=== PATIENT | male | born 1955 | race Caucasian/White ===

== ENCOUNTER → 2017-02-06 | Outpatient (CLI) | payer OTHER ==
[~2017-02-06] MED LIST: ALTOPREV40 MG PO; ASPIRIN81 M2 PO; ATORVASTATIN CA10 MG PO; BACLOFEN10 MG PO; BLOOD PRESSURE PO; BUSPIRONE HCL10 MG PO; CELEXA20 MG PO; CLEOCIN HCL300 M1 PO; CLOPIDOGREL75 MG PO; COREG3.125 MG PO; COREG6.25 MG PO; CYMBALTA20 MG PO; DELTASONE20 MG PO; DOCUSATE SODIU100 MG PO; ENTRESTO 24 MG1 EACH PO; FLOMAX0.4 M1 PO; GABAPENTIN300 MG PO; GLUCOPHAGE500 MG PO; HYDROCHLOROTHIA25 MG PO; KEFLEX PO; KEFLEX500 MG PO; LINZESS145 MCG PO; NITROGLYCERIN0.4 MG SL; PANTOPRAZOLE SO40 MG PO; PERCOCET10 PO; PERCOCET5/325 PO; PRAVASTATIN SOD40 MG PO; ST. JOSEPH ASP325 MG PO; ZESTRIL5 MG PO; [UNRECOGNIZED DRUG - OTHER] PO
--- NOTE | ~2017-02-06 | CR63 ---
[facility] A Service of [facility] RADIOLOGY TEXT RESULTS PATIENT: KATIA SIFUENTES LOCATION: [facility] : 59 UNIT #: [id number] AGE: [address]: JULIETA MCKEE APRN SEX: M ORDER DR: [id number] [address] [address] [id number] O MR#: [id number] Acc #: [id number] NAME: KATIA SIFUENTES : 1955 SEX: M STUDY DATE/TIME: 02/06/2017 11:33 UNIT: [facility] ROOM: STUDY DESCRIPTION: CR Chest 2 View Attending Physician: Julieta Mckee M.D. Ordering Physician: Julieta Mckee M.D. Primary Care Physician: Primary Care Physician No MEDICAL IMAGING REPORT This report is preliminary unless electronic signature is present. EXAM Chest 2 views, 02/06/2017 11:33 hours HISTORY 61-year-old man with 2-week history of congestion and cough. COMPARISON None FINDINGS Upright PA and lateral views of the chest performed. Patient's arms are not raised overhead on the lateral view which obscures the anterior chest. The heart size is within normal limits. Mediastinal and hilar contours are normal. There are benign calcified nodes present. The lungs are clear and there are no effusions. IMPRESSION Benign calcified granulomatous changes. No acute cardiopulmonary findings. Dictated by... Iram Sweeney M.D. THIS IS AN ELECTRONICALLY VERIFIED REPORT Iram Sweeney M.D. at 02/06/2017 1:43 PM Jeanne TD: 02/06/2017 13:24 JOB #: [id number] MEDICAL IMAGING REPORT Page 1 of 1
--- NOTE | ~2017-02-06 | CR123 ---
[facility] A Service of [facility] RADIOLOGY TEXT RESULTS PATIENT: KATIA SIFUENTES LOCATION: [facility] : 59 UNIT #: [id number] AGE: [address]: JULIETA MCKEE APRN SEX: M ORDER DR: [id number] [address] [address] [id number] O MR#: [id number] Acc #: [id number] NAME: KATIA SIFUENTES : 1955 SEX: M STUDY DATE/TIME: 02/06/2017 UNIT: [facility] ROOM: STUDY DESCRIPTION: CR Foot 2 Views Lt Attending Physician: Julieta Mckee M.D. Ordering Physician: Julieta Mckee M.D. Primary Care Physician: No Primary Care Physician MEDICAL IMAGING REPORT This report is preliminary unless electronic signature is present. EXAM Left foot, 3 views, 02/06/2017, 1133 hours. HISTORY 61-year-old male with history of diabetes and wound on toe for 3 weeks after skinning toes on table. Evaluate for foreign body, left leg paralysis, right leg amputation. COMPARISON STUDIES Left foot film, 04/17/2010. FINDINGS AP, lateral and oblique views demonstrate a mottled appearance throughout all of the bones, most likely representing disuse osteopenia or osteoporosis. Previous fractures of the distal phalanx of the great toe and proximal phalanx of the 2nd toe, which were acute on 04/17/2010, have healed. No definite acute fracture is seen. However, there is abnormal appearance on the lateral view at the distal interphalangeal joint of the 2nd toe, which raises question of spurring versus fracture. This does, however, appear normal on the AP view. Suggest correlation with site of patient's acute injury. IMPRESSION 1. There is a diffusely mottled appearance to the bones, most likely representing disuse osteopenia or osteoporosis. 2. Previous fractures of the distal phalanx of the great toe and proximal phalanx of the second toe, which were acute on 04/17/2010, have healed. 3. No definite acute fracture is seen. There is a somewhat unusual appearance at the distal interphalangeal joint of the 2nd toe, as seen on the lateral view, which could represent spurring or chronic change versus small fracture. This appears normal on the AP view, and [facility] A Service of [facility] RADIOLOGY TEXT RESULTS PATIENT: KATIA SIFUENTES LOCATION: [facility] : 59 UNIT #: [id number] AGE: [address]: JULIETA MCKEE APRN SEX: M ORDER DR: there is no oblique view. 4. Hardware is present in the distal fibula without change. STAT * RESULT Dictated by... Iram Sweeney M.D. THIS IS AN ELECTRONICALLY VERIFIED REPORT Iram Sweeney M.D. at 02/06/2017 1:43 PM Fifi TD: 02/06/2017 13:19 JOB #: [id number] MEDICAL IMAGING REPORT Page 1 of 1
== END | disposition home or self-care (01) ==
LOC: SRAD 11:23
DX: E11.69 Type 2 diabetes mellitus with other specified complication (principal); J84.10 Pulmonary fibrosis, unspecified; Z72.0 Tobacco use
CPT/HCPCS: 71020; 73620

== ENCOUNTER 2017-03-02 23:57 | Inpatient (IN) | payer OTHER ==
--- NOTE | ~2017-03-02 | DS ---
Unit #: [id number] #: [id number] Patient: KATIA SIFUENTES [id number] [address] [facility]. [place], [place] [address] [id number] I MR#: [id number] NAME: KATIA SIFUENTES. ROOM: 574 Age: 61 Sex: M Admission Date: 03/03/2017 : 1955 Discharge Date: 03/20/2017 Attending Physician: Bradley Hansen M.D. Primary Care Physician: Leona Primary Care Physician DISCHARGE SUMMARY ADDENDUM TO TRANSFER OF CARE DISCHARGE DIAGNOSES 1. Lower gastrointestinal bleed due to ischemic colitis for pathology following colonoscopy. The patient was treated with a complete course of Levaquin. 2. SIRS (systemic inflammatory response syndrome) due to cellulitis of the foot, as well as ischemic bowel. 3. Acute appendicitis, follow jono [facility] on 03/17/2017. 4. Peripheral artery disease, had a left leg femoral popliteal bypass with vascular surgery on 03/12/2017, as well as left external iliac artery stent. The patient does have a remote history of right fyuzp-mku-zaqy amputation. 5. Acute kidney injury, prerenal, has been off of fluids as renal function, with BUN of 12 and creatinine of 1.2 on the day of discharge. 6. 2.3 cm hypoechoic mass versus pseudomass. The patient has seen Dr. Raines during this hospitalization and he followed up with Dr. Raines for any ongoing need for this. 7. Essential hypertension. 8. Postoperative paraphimosis, this has resolved. 9. Diabetic infected foot, was treated with Levaquin and was seen at the beginning of the hospitalization with podiatry. 10. Ischemic cardiomyopathy. 11. Left ventricular ejection fraction is predicted to be at 20% to 25%. Patient did have left heart cath with no intervention by Dr. Nix during this hospitalization. 12. Essential hypertension. 13. Type 2 diabetes, A1c of 6.6. 14. Hyperlipidemia on Lipitor. 15. History of anxiety and depression. CONSULTANTS Dr. Santa of gastroenterology; Dr. Kincaid with urology; [facility] Podiatry; Dr. Murrell of vascular surgery; [facility]; Dr. Jann Heath of [facility]. This is an addendum to the transferred cares that were done before and therefore, since the time of the transferred care. PROCEDURES 1. Laparoscopic appendectomy by Dr. Jann Heath on 03/17/2017. 2. Imaging since 03/14/2017 includes x-ray of abdomen, impression: Unit #: [id number] #: [id number] Patient: KATIA SIFUENTES Nonspecific but nonobstructive bowel gas pattern. No free intraperitoneal air. 1.3 cm left stone. Vascular stents in the aortoiliac vessel on the right and left iliac vessel along with postoperative changes in the region of the left hip. 3. CT abdomen and pelvis on 03/16/2017, impression: New free fluid adjacent to the appendix with free fluid layering in the pelvis. The appendix appears to have increased slightly in caliber but is not well evaluated due to adjacent free fluid. Appendix now measures up to 7 mm. Recent small bilateral pleural effusions with increasing bibasilar atelectasis. Stable gas within the left inguinal region extending into the left superior sacrum, likely due to recent femoral bypass grafting. 4. The left lower YUSRA on 03/18/2017, impression: No arterial insufficiency of the left lower extremity, with adequate perfusions of the first toe, but diminished waveform consistent with small vessel disease. 5. Left lower extremity graft surveillance ultrasound, impression: Widely patent left femoral to below knee popliteal artery bypass. LABS AT THIS TIME Glucose 93, BUN 11, creatinine 1.2, sodium 134, potassium 4.1, chloride 102, CO2 24, calcium 8.1. CBC - WBC 14.0, rbc's 3.86, hemoglobin 11.2, hematocrit 34.7, MCV of 89.8, MCH is 29.8, leukocyte 28.9, MCHC 32.2, RDW 16.0, platelets 439, MPV is 0.3. HOSPITAL COURSE The patient is a 61-year-old male with a past medical history of essential hypertension, remote CVA with low C8 contracture, type 2 diabetes, right bolto-spp-zcqd amputation following gangrene, left ankle ORIF who presents to the emergency department due to diarrhea with an episode of bright red blood per rectum. Patient was initially admitted for lower GI bleed, gastroenterology with Dr. Santa had performed a colonoscopy and the bowel looked severely obstructive. This was confirmed that the patient had an ischemic colitis per pathology but what was more worrisome was that with his ischemic bowel, that his left leg that is not amputated, appears to be ischemic, as there is no dorsalis pedis blood flow and the leg looks severely ischemic. MRI of the foot was done to rule out osteomyelitis, which patient does not have osteomyelitis. Also an YUSRA was performed to assess for peripheral artery, which he had severe arteriosclerosis, therefore, vascular surgery was consulted. Then we planned to do a femoral popliteal bypass. Cardiology was consulted given his significant arterial stenosis disease and his known history of coronary artery disease. 2D echo was performed, which found that patient has severe ischemic cardiomyopathy with a left ventricular ejection fraction of 20% to 25%, therefore, heart catheterization was done by Dr. Nix, which he did not received any intervention for this assessment. Following that, he had a femoral popliteal bypass by vascular surgery, which bypass and stent had gone well, except following the procedure the patient did have paraphimosis. Dr. Raines of urology had seen the patient and had assisted with this. Currently the patient is without a catheter and is urinating. Following this, the patient had persistent right lower quadrant abdominal pain, which [facility] were consulted and patient did received laparoscopic appendectomy by Dr. Heath on 03/17/2017. At this time, given patient's significant time that was needed of significant hospitalization, we had asked physical and occupational therapy to see this patient in consultation and make recommendations for rehab. Patient is not appropriate for subacute rehab and our materials planner has spoken to patient and his children at Unit #: [id number] #: [id number] Patient: KATIA SIFUENTES, of patient needing to be placed to long-term care, but his daughter and his son-in-law states he has much support through them. His son-in-law does not work out of the home, therefore, can be assistance to him 09/06 and patient is refusing long-term care placement at this time, therefore, patient will be discharge home in stable condition for home health to come out and assist this patient. The patient will also need to go through his primary care physician with [facility] to obtain prosthetic leg. DISCHARGE CONDITION Stable to home. DISCHARGE ACTIVITIES To resume activities as was prior to hospitalization. The patient does have a board to help with getting him up and moving him around. The patient also his daughter and son-in-law who will be available 09/06 for further assistance. Will also have assistance with additional community assistance to deliver food and mow. The patient's daughter guarantees to come by his house to deliver home cooked meals at least once a day and again please note the patient's son-in-law does not work out of the home and is available to him 09/06. DISCHARGE FOLLOWUP 1. Patient is to see Dr. Murrell with vascular surgery and to call the office for the followup. 2. The patient does have a clam shovel operator through [facility] and will followup with him as needed. 3. Patient is to followup with [facility] for his appendectomy. 4. Please note, patient still has fanny in his left leg and can be further instructed with Dr. Murrell in followup for removal of those fanny. 5. Followup with Dr. Raines for his hypoechogenic mass. 6. He is to followup with his primary care physician with [facility] within one to two weeks. DISCHARGE MEDICATIONS 1. Flomax 0.4 mg orally daily. 2. Entresto, 24 of the sacubitril and 26 mg of valsartan, 1 tablet orally twice daily. 3. Gabapentin 300 mg orally at bedtime. 4. Cymbalta 20 mg orally 3 times daily. 5. BuSpar 10 mg orally 3 times daily. 6. Coreg 6.25 mg orally twice daily. 7. Colace 100 mg orally twice daily. 8. Linzess 145 mcg orally daily. 9. Lipitor 10 mg orally at bedtime. 10. Aspirin 81 mg orally daily. 11. Percocet 10/325 one tablet every 4 hours as needed for pain, prescription for 20 was given. 12. Plavix 75 mg orally daily, a prescription for 30 was given. Vascular surgery has ensured that they will write for additional prescription if needed. 13. Protonix 40 mg orally daily. 14. Baclofen 10 mg orally daily. 15. Nitroglycerin 0.4 mg sublingually every 5 minutes as needed for chest pain. Unit #: [id number] #: [id number] Patient: KATIA SIFUENTES Note: This discharge took 45 minutes in for patient education and to coordinate care. Dictated by... SRIKANTH Glez/melina TD: 03/21/2017 09:55 JOB #: [id number] DISCHARGE SUMMARY Page 1 of 1 X X DISCHARGE SUMMARY
--- NOTE | ~2017-03-02 | US83 ---
[facility] A Service of [facility] RADIOLOGY TEXT RESULTS PATIENT: KATIA SIFUENTES LOCATION: [facility] [id number] : 59 UNIT #: [id number] AGE: [address]: Bradley Hansen MD SEX: M ORDER DR: [id number] [facility] [address] [place], [place] [address] [id number] I MR#: [id number] Acc #: [id number] NAME: KATIA SIFUENTES : 1955 SEX: M STUDY DATE/TIME: 03/18/2017 9:13 UNIT: [facility] ROOM: [facility] STUDY DESCRIPTION: US LE [employer] Attending Physician: Bradley Hansen M.D. Ordering Physician: Sumeet Villafuerte M.D. Primary Care Physician: Primary Care Physician No MEDICAL IMAGING REPORT This report is preliminary unless electronic signature is present EXAM Left lower extremity graft surveillance ultrasound HISTORY Recent left leg bypass. FINDINGS The left common femoral artery appears widely patent with a velocity of 97 cm/sec. The bypass graft noted from the common femoral artery to the below knee popliteal artery is widely patent throughout its course. Proximal anastomotic velocity is 122 cm/sec, proximal thigh graft 55 cm/sec, mid thigh 76 cm/sec, distal thigh 56 cm/sec, below the knee 164 cm/sec and the distal anastomosis is not well seen. Outflow via the popliteal artery is patent with a velocity of 86 cm/sec. IMPRESSION Widely patent left femoral to below knee popliteal artery bypass. Dictated by... Brandon Soni M.D. THIS IS AN ELECTRONICALLY VERIFIED REPORT Brandon Soni M.D. at 03/19/2017 7:23 AM MILY/katlin TD: 03/18/2017 13:15 JOB #: [id number] MEDICAL IMAGING REPORT [facility] A Service [facility] RADIOLOGY TEXT RESULTS PATIENT: KATIA SIFUENTES LOCATION: [facility] : 59 UNIT #: [id number] AGE: [address]: Bradley Hansen MD SEX: M ORDER DR: Page 1 of 1 COPY
--- NOTE | ~2017-03-02 | CR126 ---
[facility] A Service of [facility] RADIOLOGY TEXT RESULTS PATIENT: KATIA SIFUENTES LOCATION: [facility] : 59 UNIT #: [id number] AGE: [address]: Bradley Hansen MD SEX: M ORDER DR: [id number] [facility] [address]. [place], [place] [address] [id number] I MR#: [id number] Acc #: [id number] NAME: KATIA SIFUENTES : 1955 SEX: M STUDY DATE/TIME: 03/04/2017 12:03 UNIT: [facility] ROOM: [facility] STUDY DESCRIPTION: CR Foot Complete Min 3 View Lt Attending Physician: Bradlye Hansen M.D. Ordering Physician: Staff Doctor Not On Primary Care Physician: No Primary Care Physician MEDICAL IMAGING REPORT This report is preliminary unless electronic signature is present EXAM 3 views left foot. DATE 03/04/2017 HISTORY Left foot pain, swelling and redness for ukl-wh-nxzlt days. No documented injury. COMPARISON Left foot radiographs 02/06/2017. FINDINGS Osteopenic changes are present which can limit sensitivity for detection of subtle nondisplaced fracture. Patient has previous history of fractures of the distal phalanx of the great toe and proximal phalanx of the second toe on 04/17/2010. No residual fracture line is seen at these locations. The MCP joints are in extension and the interphalangeal joints are predominately in flexion, resulting in some overlap of the digits, particularly in the lateral projection. No acute displaced fracture joint dislocation is identified. Plate and screw fixation changes are demonstrated within the distal fibula. No definite osteolytic or osteoblastic lesions are identified. Previously described unusual appearance of the interphalangeal joint of the second toe on previous study has no definite correlate on today's examination. IMPRESSION 1. No acute abnormality is seen within the left foot. Of note, advanced osteopenic type changes are seen which can limit sensitivity for detection of subtle nondisplaced fracture. The irregularity of the [facility] A Service of [facility] RADIOLOGY TEXT RESULTS PATIENT: KATIA SIFUENTES LOCATION: [facility] [id number] : 59 UNIT #: [id number] AGE: [address]: Bradley Hansen MD SEX: M ORDER DR: interphalangeal joint of the second toe described on the previous study has no plain film correlate on today's exam. 2. Surgical fixation changes of the distal fibula. Dictated by... Lily Adler M.D. THIS IS AN ELECTRONICALLY VERIFIED REPORT Lily Adler M.D. at 03/05/2017 8:34 AM IVORY/andrew TD: 03/04/2017 18:26 JOB #: [id number] MEDICAL IMAGING REPORT Page 1 of 1 COPY
--- NOTE | ~2017-03-02 | OR ---
Unit #: [id number] #: [id number] Patient: KATIA SIFUENTES [id number] [address] [place], [place] [address] [id number] Elmer MR#: [id number] NAME: KATIA SIFUENTES ROOM: 4 Date of Procedure: 03/17/2017 Admission Date: 03/03/2017 Surgeon: Jann Heath M.D. : 1955 Attending Physician: Bradley Hansen M.D. Primary Care Physician: Primary Care Physician No OPERATIVE REPORT PREOPERATIVE DIAGNOSIS Appendicitis. POSTOPERATIVE DIAGNOSIS Periappendicitis. PROCEDURES PERFORMED 1. Diagnostic laparoscopy. 2. Laparoscopic appendectomy. DIGITAL COMMUNICATIONS MANAGER None. ANESTHESIA General anesthesia. ESTIMATED BLOOD LOSS Minimal. IV FLUIDS 500 crystalloid. COMPLICATIONS None. INDICATIONS FOR PROCEDURE The patient is a 61-year-old gentleman, who presents with acute onset of right lower quadrant abdominal pain. Exam is consistent with acute appendicitis. CT scan shows dilated appendix with fluid around the appendix. There was also concern about bowel ischemia. DESCRIPTION OF PROCEDURE The patient was taken to the operating theater and placed in supine position. General anesthesia was induced. The abdomen was prepped and draped. A 5-mm Optiview trocar was placed in left upper quadrant without difficulty. The abdomen was insufflated to 15 mmHg with CO2. I placed a right lower quadrant 10 mm, left lower quadrant 5 mm ports. General inspection of the abdomen revealed fluid in the pelvis, but did not appear to be infected. The appendix was distended, but not grossly suppurative. I then ran the small bowel from the cecum proximal. I saw no evidence of ischemia or other pathology. I thus fired a HYUN stapler across the appendix as well as the mesoappendix. Hemostasis was obtained. I removed Unit #: [id number] #: [id number] Patient: KATIA SIFUENTES the appendix via the 10 mm port. The ports were removed. The fascia was closed with 0 Vicryl and skin with 4-0 Vicryl. The patient tolerated the procedure well and sent to the recovery room in good condition. Dictated by... Jann Heath M.D. AMAN/abbey TD: 03/18/2017 05:12 JOB #: [id number] OPERATIVE REPORT Page 1 of 1 X Jann Heath MD PROCEDURE OPERATIVE NOTE
--- NOTE | ~2017-03-02 | CR2 ---
[facility] A Service of [facility] & [facility] RADIOLOGY TEXT RESULTS PATIENT: KATIA SIFUENTES LOCATION: [facility] : 59 UNIT #: [id number] AGE: [address]: Bradley Hansen MD SEX: M ORDER DR: [id number] [facility] [address]. [place], [place] [address] [id number] I MR#: [id number] Acc #: [id number] NAME: KATIA SIFUENTES : 1955 SEX: M STUDY DATE/TIME: 03/03/2017 1:16 UNIT: [facility] ROOM: [facility] STUDY DESCRIPTION: CR Abdomen Acute Series Attending Physician: Bradley Hansen M.D. Ordering Physician: Jean Salas M.D. Primary Care Physician: Primary Care Physician No MEDICAL IMAGING REPORT This report is preliminary unless electronic signature is present EXAM Acute abdomen series HISTORY Rectal bleeding. Abdominal pain for one day. FINDINGS A PA view of the chest and a flat and upright view of the abdomen were obtained. The heart size and vascularity are normal and the lungs are clear. The bowel gas pattern is normal. The bones show mild degenerative changes. There is a calcification in the left side of the abdomen that might represent a renal stone. It is about 13 mm in diameter. IMPRESSION 1. There is a 13 mm calcification in the left side of the abdomen that might represent a renal stone, otherwise the study is normal. Dictated by... Treovr Petit M.D. THIS IS AN ELECTRONICALLY VERIFIED REPORT Trevor Petit M.D. at 03/03/2017 1:23 PM JORI/karol TD: 03/03/2017 09:07 JOB #: [id number] MEDICAL IMAGING REPORT Page 1 of 1 COPY
--- NOTE | ~2017-03-02 | OR ---
Unit #: [id number] #: [id number] Patient: KATIA SIFUENTES [id number] [address] [address] [id number] I MR#: [id number] NAME: KATIA SIFUENTES. ROOM: 224 Date of Procedure: 03/04/2017 Admission Date: 03/03/2017 Surgeon: Gage Santa M.D. : 1955 Attending Physician: Bradley Hansen M.D. OPERATIVE REPORT PROCEDURE PERFORMED Colonoscopy with biopsy and colonoscopy with snare polypectomy. INDICATIONS FOR PROCEDURE The patient presented with blood in the stool, undergoing colonoscopy for evaluation. MEDICATIONS Monitored anesthesia. POSTOPERATIVE FINDINGS 1. Colonoscopy completed to cecum. 2. Large ulcer with patchy colitis involving sigmoid colon most likely ischemic biopsies taken. 3. Polyps 5-6 mm, rectum, snared and sent for histopathology. 4. Rest of the colon to cecum was normal, but for diverticulosis. PLAN Supportive care. Watch H and H. Follow up on the pathology report. DESCRIPTION OF PROCEDURE The patient was explained of the procedure, risks, and benefits along with risks and benefits of anesthesia. He was brought to the endoscopy room. Propofol anesthesia was given. Rectal exam was done, which was normal. Colonoscope was lubricated, passed up the rectum, advanced under direct vision all the way to cecum. Cecum was identified by ileocecal valve and appendiceal orifice. At this point, I started to pull the scope out carefully looking. Findings have been described above. Biopsies taken from the ulcer. Polyp was snared and sent for histopathology. I retroflexed in the rectum, small hemorrhoids seen. Scope was gently pulled out. He tolerated it well. No major complications were seen. Dictated by... Sondra Foster/abbey TD: 03/04/2017 08:48 JOB #: [id number] Unit #: [id number] #: [id number] Patient: KATIA SIFUENTES OPERATIVE REPORT Page 1 of 1 X Gage Santa MD PROCEDURE OPERATIVE NOTE
--- NOTE | ~2017-03-02 | CT4 ---
[facility] A Service of [facility] RADIOLOGY TEXT RESULTS PATIENT: KATIA SIFUENTES LOCATION: [facility] 574-01 : 59 UNIT #: [id number] AGE: [address]: Bradley Hansen MD SEX: M ORDER DR: [id number] [facility] [address]. [place], [place] [address] [id number] MR#: [id number] Acc #: [id number] NAME: KATIA SIFUENTES. : 1955 SEX: M STUDY DATE/TIME: 03/14/2017 8:13 UNIT: [facility] ROOM: [facility] STUDY DESCRIPTION: CT Abd and Pelv Wo Cont Attending Physician: Bradley Hansen M.D. Ordering Physician: Dinorah Hay M.D. Primary Care Physician: Primary Care Physician No MEDICAL IMAGING REPORT This report is preliminary unless electronic signature is present EXAM CT abdomen and pelvis without contrast INDICATIONS Lower GI bleeding, rectal bleeding since 03/02/2017. Lower abdominal pain since 03/02/2017. PROCEDURE Unenhanced CT of the abdomen and pelvis. COMPARISON None. This CT exam was performed with one or more of the following radiation dose reduction techniques: automatic exposure control, adjustment of mA and/or kV according to patient size, and iterative reconstruction. FINDINGS Abdomen without contrast: There is bibasilar atelectasis or scarring. Hepatic steatosis. The spleen, adrenal glands, pancreas unremarkable. Some high attenuation layering in the gallbladder may represent small stones or sludge. No convincing evidence for gallbladder inflammation. There are bilateral nonobstructing renal calculi, small on the right and the largest on the left measures 11 mm. There is a 2.1 cm right lower pole renal cyst. A second cyst exophytic from the lower pole of the right kidney measures 2.5 cm. There is no radiodense ureteral calculus or hydronephrosis. Moderate amount of stool in the right side of the colon. No appreciable colonic mass by CT. Appendix is normal. Pelvis without contrast: No pelvic mass or fluid. There is a few small [facility] A Service of [facility] RADIOLOGY TEXT RESULTS PATIENT: KATIA SIFUENTES LOCATION: [facility] 574-01 : 59 UNIT #: [id number] AGE: [address]: Bradley Hansen MD SEX: M ORDER DR: foci of subcutaneous air in the left inguinal region, as well as some surgical clips. No aggressive appearing bone lesion. IMPRESSION 1. No CT finding to explain the patient's lower gastrointestinal bleeding. 2. Bilateral nonobstructing renal calculi. 3. Hepatic steatosis. 4. Postsurgical change in the left inguinal region. Dictated by... Immanuel Ribeiro M.D. THIS IS AN ELECTRONICALLY VERIFIED REPORT Immanuel Ribeiro M.D. at 03/17/2017 8:22 AM Nora TD: 03/14/2017 10:15 JOB #: [id number] MEDICAL IMAGING REPORT Page 1 of 1 COPY
--- NOTE | ~2017-03-02 | CO ---
Unit #: [id number] #: [id number] Patient: KATIA SIFUENTES [id number] [facility]. [place], [place] [address] [id number] I MR#: [id number] NAME: KATIA SIFUENTES. ROOM: 224 Age: 61 Sex: M Admission Date: 03/03/2017 : 1955 Attending Physician: Bradley Hansen M.D. CONSULTATION REPORT REASON FOR CONSULTATION Lower GI bleed. HISTORY OF PRESENTING ILLNESS The patient states he was in his usual state of health until yesterday where he noticed a large amount of bright red blood mixed in the stool. He reports 2 episodes of this, one at home and second upon arrival to the floor. Denies any symptoms. Denies any abdominal pain, rectal pain, lightheadedness, dizziness. Vital signs have remained stable and his only home medications are blood pressure medicine and aspirin. In the ER, rectal exam did notice gross bright blood in the rectal vault. The patient incidentally also has been worked up at [facility] primary care for about 2 months for diabetic ulcers, has been going weekly, has been getting different antibiotics and acutely tender to the left foot. He does have an ulcer which he reports having reopened yesterday after bumping it. The patient denies any fevers, chills, chest pain, shortness of breath. 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 ALLERGIES Shellfish. HOME MEDICATIONS Aspirin and blood pressure medicine, I am unsure of medications at this time. Home medications have been requested from his pharmacy. FAMILY HISTORY Reviewed and noncontributory. SOCIAL HISTORY The patient lives with a roommate. He is a longtime smoker, about a pack a day. Does not drink alcohol or use illicit drugs. REVIEW OF SYSTEMS A complete 10-point review of systems is completed and negative except as mentioned in the HPI. PHYSICAL EXAMINATION GENERAL: The patient is very pleasant 61-year-old male, currently in no acute distress. VITAL SIGNS: Temperature is 97.5, pulse is 87, respirations 18, blood Unit #: [id number] #: [id number] Patient: SIFUENTES,KATIA D pressure is 151/80. HEENT: PERRLA. NECK: Supple. CARDIAC: S1 and S2. LUNGS: Clear to auscultation. ABDOMEN: Soft, rounded, nontender, nondistended. EXTREMITIES: Diminished left pedal pulse. Superficial ulcer noted. The patient is also acutely tender on touching of the left foot. NEURO: The patient is alert, awake, and oriented x3. DIAGNOSTIC STUDIES LABORATORY RESULTS: Hemoglobin is 13, hematocrit is 40.1, white count is 14.0. Chemistry; BUN and creatinine are 39 and 2.0 respectively, otherwise negative. ASSESSMENT AND PLAN 1. Lower gastrointestinal bleed. H and H are stable at this time. We will plan for colonoscopy in the morning for evaluation. Continue to monitor H and H. 2. Left foot ulcer. Wound Care has been consulted. Workup is being completed by primary team. 3. Hypertension. Thank you for this interesting consult. We will continue to follow along. Dictated by... Malika Desir A.P.R.N. for Sondra Foster/abbey TD: 03/04/2017 03:20 JOB #: [id number] CONSULTATION REPORT Page 1 of 1 X X CONSULTATION REPORT
--- NOTE | ~2017-03-02 | US136 ---
[facility] A Service of [facility] RADIOLOGY TEXT RESULTS PATIENT: KATIA SIFUENTES LOCATION: [facility] 574-01 : 59 UNIT #: [id number] AGE: [address]: Bradley Hansen MD SEX: M ORDER DR: [id number] [facility] [address]. [place], [place] [address] [id number] I MR#: [id number] Acc #: [id number] NAME: KATIA SIFUENTES. : 1955 SEX: M STUDY DATE/TIME: 03/04/2017 10:56 UNIT: C2A ROOM: [facility] STUDY DESCRIPTION: US U/L Ext Art Study Ltd Bilat Attending Physician: Bradley Hansen M.D. Ordering Physician: Bradley Hansen M.D. Primary Care Physician: Primary Care Physician No MEDICAL IMAGING REPORT This report is preliminary unless electronic signature is present EXAM Left lower extremity YUSRA. HISTORY Peripheral arterial disease. FINDINGS The left brachial pressure is 143, right was not obtained due to an IV in place. The right ABIs are not obtained due to patient's previous amputation. Left dorsalis pressure is 46 and posterior tibial is 46 for an YUSRA of 0.32. First toe pressure was not obtained. PVR waveform at the ankle level appears to be intact but slightly degraded. IMPRESSION Severe arterial insufficiency of the left lower extremity baed on YUSRA. Dictated by... Brandon Soni M.D. THIS IS AN ELECTRONICALLY VERIFIED REPORT Brandon Soni M.D. at 03/12/2017 11:50 AM MILY/karol TD: 03/04/2017 14:53 JOB #: [id number] MEDICAL IMAGING REPORT Page 1 of 1 COPY
--- NOTE | ~2017-03-02 | US146 ---
[facility] A Service of [facility] RADIOLOGY TEXT RESULTS PATIENT: KATIA SIFUENTES LOCATION: [facility] 574-01 : 57 UNIT #: [id number] AGE: [address]: Bradley Hansen MD SEX: M ORDER DR: [id number] [facility]. [place], [place] [address] [id number] I MR#: [id number] Acc #: [id number] NAME: KATIA SIFUENTES. : 1955 SEX: M STUDY DATE/TIME: 03/07/2017 16:59 UNIT: C2A ROOM: [facility] STUDY DESCRIPTION: US Vein Map Hemodial Access Attending Physician: Bradley Hansen M.D. Ordering Physician: Bradely Hansen M.D. MEDICAL IMAGING REPORT This report is preliminary unless electronic signature is present EXAM Bilateral lower extremity vein mapping HISTORY Peripheral vascular disease. Preop leg bypass. History of right leg amputation. FINDINGS Vein mapping of the lower extremity veins, saphenous veins was performed. The left greater saphenous vein is patent and measures 5.5 mm proximal thigh, 4.7 mm mid-thigh, 5.4 mm distal thigh, 4 mm at the knee, 3.6 mm proximal calf, 4.6 mm mid-calf and 3.8 mm distal calf. The left lesser saphenous vein is patent and measures 2.9 mm proximal calf, 3.9 mm mid-calf, and 4.6 mm distal calf. Right greater saphenous vein measures 2.8 mm proximal thigh and 2.6 mm mid-thigh and the patient has an amputation through the mid-thigh. IMPRESSION The left greater saphenous vein is patent and suitable for bypass purposes from the groin to the ankle. The left lesser saphenous vein is patent and suitable for bypass purposes in the calf. Dictated by.Gilda Jacinto M.D. THIS IS AN ELECTRONICALLY VERIFIED REPORT Von Jacinto M.D. at 03/11/2017 9:45 AM SA/pcl [facility] A Service of [facility] RADIOLOGY TEXT RESULTS PATIENT: KATIA SIFUENTES LOCATION: [facility] 574-01 : 57 UNIT #: [id number] AGE: [address]: Bradley Hansen MD SEX: M ORDER DR: TD: 03/08/2017 16:20 JOB #: [id number] MEDICAL IMAGING REPORT Page 1 of 1 COPY
--- NOTE | ~2017-03-02 | CR63 ---
[facility] A Service of [facility] RADIOLOGY TEXT RESULTS PATIENT: KATIA SIFUENTES LOCATION: [facility]02-15 : 59 UNIT #: [id number] AGE: [address]: Bradley Hansen MD SEX: M ORDER DR: [id number] [place], [place] [address] [id number] I MR#: [id number] Acc #: [id number] NAME: KATIA SIFUENTES : 1955 SEX: M STUDY DATE/TIME: 03/14/2017 13:36 UNIT: [facility] ROOM: [facility] STUDY DESCRIPTION: CR Chest 2 View Attending Physician: Bradley Hansen M.D. Ordering Physician: Bradley Hansen M.D. Primary Care Physician: No Primary Care Physician MEDICAL IMAGING REPORT This report is preliminary unless electronic signature is present EXAM Chest, 2 views. DATE OF EXAM 03/14/2017, 1336 hours. CLINICAL HISTORY 61-year-old man with shortness of air for 10 days, history of gastrointestinal bleed, diabetes and CVA, hypertension. COMPARISON 02/06/2017 FINDINGS Upright PA and lateral views of the chest demonstrate heart size within normal limits. There is a mildly tortuous aorta without change. The pulmonary vascularity is normal. The lungs are clear and no effusions are seen. IMPRESSION No acute cardiopulmonary findings. Dictated by... Iram Sweeney M.D. THIS IS AN ELECTRONICALLY VERIFIED REPORT Iram Sweeney M.D. at 03/17/2017 9:26 AM NETO/carmine TD: 03/14/2017 15:40 JOB #: [id number] [facility] A Service of [facility] RADIOLOGY TEXT RESULTS PATIENT: KATIA SIFUENTES LOCATION: [facility] 57 : 57 UNIT #: [id number] AGE: [address]: Bradley Hansen MD SEX: M ORDER DR: MEDICAL IMAGING REPORT Page 1 of 1 COPY
--- NOTE | ~2017-03-02 | CO ---
Unit #: [id number] #: [id number] Patient: KATIA SIFUENTES [id number] [place], [place] [address] [id number] MR#: [id number] NAME: KATIA SIFUENTES. ROOM: 224 Age: 61 Sex: M Admission Date: 03/03/2017 : 1955 Attending Physician: Bradley Hansen M.D. Primary Care Physician: Primary Care Physician No Consultation Date: 03/05/2017 CONSULTATION REPORT REASON FOR CONSULTATION Peripheral vascular disease. HISTORY OF PRESENT ILLNESS This is a 61-year-old, white male, admitted through the emergency room for a GI bleed, but was noted to have an open wound to his second left toe for greater than a week. He also was noted to have abnormal ABIs of 0.32 on the left. They were not recorded for the right because he has had a previous right AKA for gangrene. He reports previous workup for bypass of his left lower extremity, but he is a poor historian and unsure of doctor and what type of bypass he was recommended. He was never followed up with for this bypass. He has had a previous right CVA with left-sided weakness. He states greater than 5 years ago. He is noted to have a left hand contracture. He does not ambulate, but uses a mobilized chair. PAST MEDICAL HISTORY 1. Hypertension. 2. PVD. 3. Right hemispheric CVA with left hemiparesis. 4. Right AKA. 5. Left ankle ORIF. ALLERGIES Shellfish. HOME MEDICATIONS Aspirin and blood pressure medication of unknown name. SOCIAL HISTORY This patient lives with a roommate who just moved in for 3 months ago. He currently smokes up to 1 pack cigarettes a day and has smoked since the age of 14. 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 Does not do illicit drugs. REVIEW OF SYSTEMS CONSTITUTIONAL: No fever, chills, or sweats. EYES: No recent visual problem. ENT: No ear pain, nasal congestion, or sore throat. RESPIRATORY: No shortness of breath. CARDIOVASCULAR: No chest pain. No palpitations. No syncope. GASTROINTESTINAL: No nausea or vomiting, but has had bloody diarrhea. GENITOURINARY: No hematuria. HEME/LYMPH: Negative for bruising or swollen lymph nodes. ENDOCRINE: No excessive thirst or hunger. Unit #: [id number] #: [id number] Patient: KATIA SIFUENTES MUSCULOSKELETAL: No back pain. No neck pain. Does have weakness to the left side of his body. INTEGUMENTARY: Open sore to left second toe. NEUROLOGIC: Alert and oriented x3. PSYCHIATRIC: No anxiety, depression, or suicidal thoughts. PHYSICAL EXAMINATION VITAL SIGNS: Temperature 98.5, heart rate of 86, saturations 95% on room air, blood pressure 122/70. GENERAL APPEARANCE: Well developed, no acute distress. HEENT: Normocephalic. Pupils equal, round, reactive to light. NECK: Supple. Nontender without lymphadenopathy, masses, or thyromegaly. No carotid bruit noted. CARDIAC: Regular rate and rhythm. No murmurs. LUNGS: Clear to auscultation. ABDOMEN: Soft, nontender. No distention. No masses. MUSCULOSKELETAL: Right AKA, left sided hemiparesis. He has a contracture of his left hand. EXTREMITIES: Upper extremities, contracture of left hand. Lower extremities, left lower extremity with cris red, open to 3 mm wound second toe, trace of edema. VASCULAR: Nonpalpable DP/PT in the left foot. Left femoral pulse is weak. INTEGUMENTARY: He has open nonhealing wound to the left second toe. NEUROLOGIC: Unequal strength bilaterally in upper extremities. PSYCHIATRIC: Oriented to person, place, and time. Demonstrates good judgment and reason. DIAGNOSTIC STUDIES LABORATORY RESULTS: YUSRA result of 0.32. Lab results on chart. ASSESSMENT AND PLAN 1. Peripheral vascular disease with abnormal ABIs and nonhealing wound of left lower extremity. We will recommend AIF with possible intervention. 2. Previous right cerebrovascular accident with left-sided weakness. Known right carotid occlusion. 3. Gastrointestinal bleed, status post colonoscopy, possible colitis, stable hemoglobin 13.2. 4. AKA questionable hypertension. Creatinine 0.9 today and 2.5 on the 16. We will discuss with Dr. Escalante for further intervention. Dictated by.Eduin. Luz Maria Mcgarry Aprn for Bradley Hansen M.D. TV/salliel TD: 03/06/2017 07:22 JOB #: [id number] Unit #: [id number] #: [id number] Patient: KATIA SIFUENTES CONSULTATION REPORT Page 1 of 1 X X CONSULTATION REPORT
--- NOTE | ~2017-03-02 | CR6 ---
[facility] A Service of [facility] RADIOLOGY TEXT RESULTS PATIENT: KATIA SIFUENTES LOCATION: [facility] [place] [facility] 574-01 : 59 UNIT #: [id number] AGE: [address]: Bradley Hansen MD SEX: M ORDER DR: [id number] [facility] [address] [place], [place] [address] [id number] I MR#: [id number] Acc #: [id number] NAME: KATIA SIFUENTES. : 1955 SEX: M STUDY DATE/TIME: 03/15/2017 13:31 UNIT: [facility] [place] [facility] ROOM: [facility] STUDY DESCRIPTION: CR Abdomen Portable Sng View Attending Physician: Bradley Hansen M.D. Ordering Physician: Bradley Hansen M.D. Primary Care Physician: No Primary Care Physician MEDICAL IMAGING REPORT This report is preliminary unless electronic signature is present EXAM Abdomen, single view, dated 03/15/2017. COMPARISON Acute abdominal series, dated 03/03/2017. HISTORY Abdominal pain and distension for 3 days. FINDINGS 2 images of the supine view of the abdomen were obtained. Nonspecific and nonobstructive bowel gas pattern is seen. No evidence of free intraperitoneal air. Previously noted 1.3 cm calcification is redemonstrated in the region of the left mid abdomen, most consistent with the left renal stone rendered in conjunction with the CT abdomen from 03/14/17. Stable. Aortoiliac stent is noted in the right. There is a left iliac stent also seen extending towards the left hip joint. Surgical skin fanny are noted projected over the left femoral head and adjacent hemipelvis. Degenerative changes of the spine. IMPRESSION 1. Nonspecific but nonobstructive bowel gas pattern is seen. 2. No free intraperitoneal air. 3. 1.3 cm left renal stone is again noted, stable. It is better characterized on the CT abdomen from yesterday. 4. Vascular stents are in the aortoiliac vessel on the right and left iliac vessel along with postoperative changes in the region of the left hip. Dictated by... Marck Silveira M.D. [facility] A Service of [facility] & [facility] RADIOLOGY TEXT RESULTS PATIENT: KATIA SIFUENTES LOCATION: [facility] [place] [facility] 574-01 : [birth year] UNIT #: [id number] AGE: [address]: Bradley Hansen MD SEX: M ORDER DR: THIS IS AN ELECTRONICALLY VERIFIED REPORT Marck Silveira M.D. at 03/17/2017 3:07 PM CPR/jt TD: 03/15/2017 15:28 JOB #: [id number] MEDICAL IMAGING REPORT Page 1 of 1 COPY
--- NOTE | ~2017-03-02 | EKG ---
PATIENT: KATIA SIFUENTES UNIT #: [id number] Ventricular Rate: 83 BPM Atrial Rate: 83 BPM P-R Interval: 128 ms QRS Duration: 88 ms Q-T Interval: 400 ms QTC Calculation(Bezet): 470 ms P [place]: 41 degrees Calculated R [place]: -8 degrees Calculated T [place]: 24 degrees Diagnosis Line: Sinus rhythm with frequent Premature ventricular Diagnosis Line: complexes and Premature atrial complexes Diagnosis Line: Nonspecific T wave abnormality Diagnosis Line: Prolonged QT Diagnosis Line: Abnormal ECG Diagnosis Line: When compared with ECG of 07-MAR-2017 14:36, Diagnosis Line: Premature atrial complexes are now Present Diagnosis Line: Confirmed by TAB PAYNE MD ([id number]) on 03/10/2017 Diagnosis Line: 10:21:07 PM INTERPRETING MD: ELMER DUNCAN
--- NOTE | ~2017-03-02 | US77 ---
[facility] A Service of [facility] & [facility] RADIOLOGY TEXT RESULTS PATIENT: KATIA SIFUENTES LOCATION: A : 59 UNIT #: [id number] AGE: [address]: Bradley Hansen MD SEX: M ORDER DR: [id number] [facility] [address]. [place], [place] [address] [id number] I MR#: [id number] Acc #: [id number] NAME: KATIA SIFUENTES. : 1955 SEX: M STUDY DATE/TIME: 03/03/2017 7:30 UNIT: [facility] ROOM: [facility] hospital STUDY DESCRIPTION: US Kidney Bilateral Complete Attending Physician: Bradley Hansen M.D. Ordering Physician: Jean Salas M.D. Primary Care Physician: No Primary Care Physician MEDICAL IMAGING REPORT This report is preliminary unless electronic signature is present EXAM Bilateral renal ultrasound, 03/03/2017. HISTORY 61-year-old male complaining of abdomen pain. Left-side renal calculus questioned on x-ray series. History of hypertension. Abnormal renal function (creatinine 2.5, BUN 44, GFR 27). TECHNIQUE Artis-scale ultrasound imaging of the kidneys and urinary bladder. FINDINGS Both kidneys are normal in size. Renal length measures 10.4 cm on the right and 11 cm on the left. There is no evidence of urinary obstruction on the right or left at this time. Shadowing nonobstructing calculus is noted in the lower pole left kidney, likely corresponding to the calcification seen on x-ray series. The technologist identified a 2.3 cm hypoechoic mass or more likely a pseudomass in the right mid kidney. This is poorly demonstrated on these images. Recommend followup CT or MRI examination when clinically feasible. Urinary bladder is unremarkable. IMPRESSION 1. Nonobstructing calculus lower pole left kidney. 2. Both kidneys are normal in size. There is no evidence of urinary obstruction. 3. 2.3 cm hypoechoic mass or pseudo mass right mid kidney was identified by the technologist but is poorly characterized on this study. Recommend follow up CT or MRI for further characterization. STS. [facility] A Service of [facility] & [facility] RADIOLOGY TEXT RESULTS PATIENT: KATIA SIFUENTES LOCATION: [address] [address] : [birth year] UNIT #: [id number] AGE: [address]: Bradlye Hansen MD SEX: M ORDER DR: Dictated by... Skyler Howell M.D. THIS IS AN ELECTRONICALLY VERIFIED REPORT Skyler Howell M.D. at 03/03/2017 3:56 PM GRIFFIN/adrian TD: 03/03/2017 10:15 JOB #: [id number] MEDICAL IMAGING REPORT Page 1 of 1 COPY
--- NOTE | ~2017-03-02 | CO ---
Unit #: [id number] #: [id number] Patient: KATIA SIFUENTES [id number] [address] [place], [place] [address] [id number] I MR#: [id number] NAME: KATIA SIFUENTES. ROOM: 574 Age: 61 Sex: M Admission Date: 03/03/2017 : 1955 Attending Physician: Bradley Hansen M.D. Primary Care Physician: No Primary Care Physician CONSULTATION REPORT REASON FOR CONSULTATION Paraphimosis. HISTORY OF PRESENT ILLNESS This 61-year-old man underwent a left lower extremity fem-distal vein procedure and external iliac artery stent for lower extremity ischemia yesterday. Our service was called after he was noted to have a swollen foreskin and paraphimosis in the recovery room, having had a catheter placed without re-extension of the foreskin. I was in surgery downtown at the time, but my partner Dr. Raines, answered the call secondarily and successfully instructed nursing in manual reduction of the paraphimosis. This did not require removal of the catheter. The patient was interviewed this morning and denies prior difficulties with his foreskin. He does complain of urinary urgency and did not understand that he had a catheter in place. He ordinarily does not have urgency, frequency or even nocturia, but does admit to some hesitancy and slow stream. He has never had medical attention or treatment of his prostate. He recalls a remote passage spontaneously of a kidney stone, but no history of urinary infections or gross hematuria. PAST MEDICAL HISTORY 1. Significant for peripheral vascular disease including right lower extremity amputation. 2. Cerebrovascular accident with left-sided weakness in 2009. 3. Both bilateral carotid stenosis. 4. History of cardiac dysrhythmia. 5. Hypertension. 6. Hyperlipidemia. 7. Type 2 diabetes. 8. Continued tobacco use. 9. Limited mobility in wheelchair. PAST SURGICAL HISTORY 1. Left ankle open reduction and internal fixation. 2. Right myrcs-uyn-roie amputation. 3. Yesterday's procedure. SOCIAL HISTORY Lives with son. Smokes one-half pack per day, down from three packs. Occasional marijuana use. Quit drinking 10 years ago. FAMILY HISTORY Negative for coronary disease or prostate cancer. Unit #: [id number] #: [id number] Patient: KATIA SIFUENTES ALLERGIES Shellfish. ADMISSION MEDICATIONS 1. Low-dose aspirin. 2. Buspirone. 3. Carvedilol. 4. Keflex. 5. Citalopram. 6. Clindamycin. 7. Duloxetine. 8. Gabapentin. 9. Hydrochlorothiazide. 10. Lisinopril. 11. Loratadine. 12. Lovastatin. 13. Metformin. 14. Protonix. 15. Prednisone REVIEW OF SYSTEMS Negative for fever, chills. Negative for constipation. Positive for peripheral vascular disease and urinary systems as noted above. Other 10-point review of systems negative. PHYSICAL EXAMINATION GENERAL: The patient is lying in bed with normal affect and mood. ABDOMEN: Soft and nontender. No scars. GENITALIA: Phallus almost appears circumcised as foreskin is retracted. There is a very slight paraphimosis and erythema. Effortless re-extension of the foreskin, which probably pulled back with an nocturnal erection. Everett catheter in good position, draining actively clear yellow urine. The patient declines a digital examination, fearing a bowel movement. EXTREMITIES: Right amputation. Left extremity bandaged. DIAGNOSTIC STUDIES LABORATORY: Urinalysis from early this morning 50-100 red cells, consistent with catheter placement. No evidence of infection. Creatinine 1.1, stable. ASSESSMENT 1. Uncomplicated paraphimosis with no severe phimosis. Unlikely to be problematic after catheter is removed. 2. Otherwise routine postoperative Everett catheter placement. Anticipate normal voiding when able to be upright. PLAN Will ask nursing to check his foreskin every shift and make sure it remains down as well as catheter is in place. Otherwise catheter management per vascular surgery. Reconsult as needed. Thank you for the consultationDiane. Dictated by... Brian Chirinos M.D. Unit #: [id number] #: [id number] Patient: KATIA SIFUENTES TERRYH/gz TD: 03/13/2017 11:38 JOB #: [id number] CONSULTATION REPORT Page 1 of 1 X Brian Chirinos MD CONSULTATION REPORT
--- NOTE | ~2017-03-02 | MR58 ---
[facility] A Service of [facility] RADIOLOGY TEXT RESULTS PATIENT: KATIA SIFUENTES LOCATION: [facility] : [birth year] UNIT #: [id number] AGE: [address]: Bradley Hansen MD SEX: M ORDER DR: [id number] [place] [id number] [facility]. [place], [place] [address] [id number] I MR#: [id number] Acc #: [id number] NAME: KATIA SIFUENTES. : 1955 SEX: M STUDY DATE/TIME: 03/04/2017 11:21 UNIT: [facility] ROOM: [facility] STUDY DESCRIPTION: MR Foot WWo Contrast Lt Attending Physician: Bradley Hansen M.D. Ordering Physician: Bradley Hansen M.D. Primary Care Physician: No Primary Care Physician MRI CENTER REPORT This report is preliminary unless electronic signature is present. EXAM Left foot MRI without and with contrast. DATE OF EXAM 03/04/2017 HISTORY 61-year-old male with left second toe pain and swelling after skinning left toe on table 3 weeks ago. Nonhealing wound. Order requests evaluation for osteomyelitis. History of diabetes and hypertension. COMPARISON Left foot x-rays, 03/04/2017. TECHNIQUE Multiplanar, multisequence high-field MR imaging of the left forefoot was performed both pre and post administration of IV gadolinium (14 mL MultiHance). FINDINGS The examination is severely limited by motion artifact on all sequences. Allowing for this, there is a small soft tissue defect along the dorsal aspect of the second toe. This is associated with some mild subcutaneous soft tissue edema, but no evidence of a drainable fluid collection. No gross evidence of a significant joint effusion. No MR evidence of osteomyelitis. There is mild subcutaneous soft tissue edema noted along the dorsum of the forefoot. IMPRESSION 1. Severely motion limited exam. Allowing for this, there is a suspected small soft tissue wound along the dorsal aspect of the second toe with mild associated soft tissue edema and inflammation. No gross evidence of a drainable fluid collection to suggest abscess. [facility] A Service of [facility] RADIOLOGY TEXT RESULTS PATIENT: KATIA SIFUENTES LOCATION: [facility] 224-01 : [birth year] UNIT #: [id number] AGE: [address]: Bradley Hansen MD SEX: M ORDER DR: No gross evidence of osteomyelitis or joint effusion. Dictated by... Compa Brown M.D. THIS IS AN ELECTRONICALLY VERIFIED REPORT Compa Brown M.D. at 03/04/2017 4:59 PM FERNANDA/carmine TD: 03/04/2017 15:49 JOB #: [id number] MRI CENTER REPORT Page 1 of 1 COPY
--- NOTE | ~2017-03-02 | US136 ---
[facility] A Service of [facility] RADIOLOGY TEXT RESULTS PATIENT: KATAI SIFUENTES LOCATION: [facility] [id number] : 59 UNIT #: [id number] AGE: [address]: Bradley Hansen MD SEX: M ORDER DR: [id number] [facility] [address] [facility]. [place], [place] [address] [id number] I MR#: [id number] Acc #: [id number] NAME: KATIA SIFUENTES : 1955 SEX: M STUDY DATE/TIME: 03/18/2017 9:08 UNIT: [facility] ROOM: [facility] STUDY DESCRIPTION: US U/L Ext Art Study Ltd Bil Attending Physician: Bradley Hansen M.D. Ordering Physician: Sumeet Villafuerte M.D. Primary Care Physician: No Primary Care Physician MEDICAL IMAGING REPORT This report is preliminary unless electronic signature is present EXAM Left lower extremity ABIs. HISTORY Peripheral arterial disease, recent left leg bypass. FINDINGS The right brachial pressure is 134, left was not obtained. Left dorsalis pedis pressure is 98, posterior tibial 125, for an YUSRA of 0.93 and a first toe pressure of 102 mmHg. PVR wave form at the ankle appears to be normal and intact. First digital wave form appears to be diminished throughout. The arterial wave forms are noted to be biphasic at the left posterior tibial artery and monophasic at the left dorsalis pedis artery. IMPRESSION No arterial insufficiency of the left lower extremity, with adequate perfusion of the first toe, but diminished wave form consistent with small vessel disease. Dictated by... Brandon Soni M.D. THIS IS AN ELECTRONICALLY VERIFIED REPORT Brandon Soni M.D. at 03/19/2017 7:23 AM MILY/lauren TD: 03/18/2017 13:17 JOB #: [id number] [facility] A Service of [facility] RADIOLOGY TEXT RESULTS PATIENT: KATIA SIFUENTES LOCATION: [facility] 574 : [birth year] UNIT #: [id number] AGE: [address]: Bradley Hansen MD SEX: M ORDER DR: MEDICAL IMAGING REPORT Page 1 of 1 COPY
--- NOTE | ~2017-03-02 | CT2 ---
[facility] A Service of [facility] & [facility] RADIOLOGY TEXT RESULTS PATIENT: KATIA SIFUENTES LOCATION: [facility] 574-01 : 59 UNIT #: [id number] AGE: [address]: Bradley Hansen MD SEX: M ORDER DR: [id number] [facility] [address] [facility]. [place], [place] [address] [id number] I MR#: [id number] Acc #: [id number] NAME: KATIA SIFUENTES. : 1955 SEX: M STUDY DATE/TIME: 03/16/2017 15:35 UNIT: [facility] ROOM: [facility] STUDY DESCRIPTION: CT Abd and Pelv W Cont Attending Physician: Bradley Hansen M.D. Ordering Physician: Bradley Hansen M.D. Primary Care Physician: Primary Care Physician No MEDICAL IMAGING REPORT This report is preliminary unless electronic signature is present EXAM CT abdomen and pelvis with IV contrast. COMPARISON March 14, 2017. INDICATIONS 61-year-old male with right-sided abdominal pain for [address] imaging of the abdomen and pelvis was performed after 100 mL of Isovue-370 were administered intravenously. Coronal and sagittal reformats were constructed. This CT exam was performed with one or more of the following radiation dose reduction techniques: Automatic exposure control, adjustment of mA and/or kV according to patient size, and iterative reconstruction. As compared to 2 days ago, there are increasing small bilateral pleural effusions with associated bibasilar lung opacities most in keeping with atelectasis. Calcified lymph nodes in the subcarinal mediastinum. Areas of subsegmental atelectasis seen within the lingula and right middle lobe anteriorly. Calcified granuloma in the right lower lobe. Bilateral mild gynecomastia. Gas noted in the subcutaneous fat overlying the right lower quadrant anterior abdominal wall most consistent with subcutaneous injections. There is diffuse mild body wall edema, with anterior scrotal skin thickening, stable from March 14, 2017. Subcutaneous gas in the left inguinal region where skin fanny are persistently seen. This gas is also noted within the superior left inguinal canal and scrotum, not appreciably changed. Bypass graft is noted at the left common femoral artery and appears patent but incompletely imaged. There is calcified and noncalcified plaque at the bifurcation of the left common femoral artery, which is distal to the anastomosis. There is also dense calcification of the right common femoral artery, which appears to be occluded. This could STS. [facility] A Service of [facility] & [facility] RADIOLOGY TEXT RESULTS PATIENT: KATIA SIFUENTES LOCATION: [place] [address] : [birth year] UNIT #: [id number] AGE: [address]: Bradley Hansen MD SEX: M ORDER DR: be secondary to phase of postcontrast imaging. Clinical correlation recommended. Stability of this finding cannot be ascertained given lack of IV contrast and lack of comparison exam. There is long-segment right aortoiliac stent, which appears patent. There is a stent in the left external femoral artery. This appears patent. The right common femoral artery stent also appears patent. Degenerative facet disease of the lower lumbar spine. There is scoliosis of the lumbar spine. There is degenerative disc disease with large posterior disc protrusion at L5-S1. There is small posterior disc protrusion at L4-L5. Coronary artery calcifications. Main branches of the abdominal aorta are patent. There is calcified and noncalcified plaque in the left common iliac artery just above the stent which is causing approximately 50% focal stenosis above the stent. The internal iliac arteries are diffusely calcified limiting evaluation for patency. There are calcifications at the origins of both renal arteries. There is likely mnnj-sf-npimcnpw stenosis at the origin of the right renal artery due to calcified plaque. There are 2 cysts in the inferior pole of the right kidney. There is a nonobstructive calculus in the inferior pole of the left kidney measuring up to 1.4 cm, with other nonobstructive inferior-pole left renal calculi. There is a low-density lesion in the mid pole of the left kidney measuring up to 9 mm, too small to characterize. Separate benign cyst versus angiomyolipoma in the mid pole of the left kidney measuring up to 1.4 cm. No evidence of associated hemorrhage. No ureteral calculi. There is a small amount of free fluid in the pelvis, new from comparison. There is gas within the urinary bladder, stable from comparison, perhaps due to recent catheterization. Correlation to exclude signs of an acute cystitis recommended. The urinary bladder wall appears mildly thickened diffusely. There are dense calcifications in the central prostate gland, a nonspecific finding perhaps due to remote prostatitis. There are scattered colonic diverticula without evidence of acute diverticulitis. No evidence of bowel obstruction. There is significant noncalcified plaque burden in the infrarenal abdominal aorta, which remains patent. There is also new periappendiceal free fluid with appendiceal caliber up to 7 mm. Appears to be a slight increased from March 14, 2017. No pneumoperitoneum. No adenopathy. There is fluid distension of the gallbladder, which is otherwise unremarkable. The liver, pancreas, spleen and adrenal glands are unremarkable. IMPRESSION 1. New free fluid adjacent to the appendix with free fluid layering in the pelvis. The appendix appears to have increased slightly in caliber but is not well evaluated due to adjacent free fluid. Appendix now measures up to approximately 7 mm. Correlation to exclude signs of an early acute appendicitis recommended. 2. Increasing small bilateral pleural effusions with increasing bibasilar atelectasis. Coronary artery calcifications. 3. Stable gas within the left inguinal region extending into the left superior scrotum likely due to recent femoral bypass grafting. The [facility] A Service of [facility] RADIOLOGY TEXT RESULTS PATIENT: KATIA ISFUENTES LOCATION: [facility] 574-01 : 59 UNIT #: [id number] AGE: [address]: Bradley Hansen MD SEX: M ORDER DR: proximal left common femoral bypass graft appears patent. 4. Questionable occlusion of the right common femoral artery at the level of the femoral head, perhaps due to phase of postcontrast imaging but this appears asymmetric as compared to the contralateral side. Stability cannot be determined. Clinical correlation is recommended. 5. Degenerative disc disease at multiple levels of the lower lumbar spine, which is severe at L5-S1 with a large posterior disc protrusion. Correlation for signs of radiculopathy recommended. 6. Approximately 50% focal stenosis of the superior left common iliac artery due to soft plaque formation. There is a stent in the left external iliac artery, which appears patent. There is also a right sided common iliac artery stent, which is widely patent. 7. Arterial calcifications elsewhere in the abdomen and pelvis likely causing at least vedc-tb-lsrtdbls stenosis of the proximal right renal artery. 8. Right-sided benign renal cyst with a separate benign renal cyst versus angiomyolipoma on the left. There is a 9 mm low-density lesion in the left kidney, which is too small to characterize. This may reflect a benign cyst. Imaging followup recommended as clinically indicated. 9. Grossly stable gas within the bladder lumen, perhaps due to Everett catheterization. The bladder wall appears mildly prominent. Acute cystitis cannot entirely be excluded. Clinical correlation recommended. Dictated by... Romulo Pina M.D. THIS IS AN ELECTRONICALLY VERIFIED REPORT Romulo Pina M.D. at 03/20/2017 9:27 AM DON/christie TD: 03/16/2017 19:05 JOB #: [id number] MEDICAL IMAGING REPORT Page 1 of 1 COPY
--- NOTE | ~2017-03-02 | CR12 ---
[facility] A Service of [facility] & [facility] RADIOLOGY TEXT RESULTS PATIENT: KATIA SIFUENTES LOCATION: [facility] 574-01 : 59 UNIT #: [id number] AGE: [address]: Bradley Hansen MD SEX: M ORDER DR: [id number] [facility] [address] [place], [place] [address] [id number] I MR#: [id number] Acc #: [id number] NAME: KATIA SIFUENTES. : 1955 SEX: M STUDY DATE/TIME: 03/12/2017 9:31 UNIT: [facility] ROOM: [facility] STUDY DESCRIPTION: CR Angio Extrem Uni SI Attending Physician: Bradley Hansen M.D. Ordering Physician: Ricardo Gonzalez M.D. MEDICAL IMAGING REPORT This report is preliminary unless electronic signature is present EXAM Intraoperative radiographs and intraoperative arteriogram of the lower extremities 03/12/2017. HISTORY Bypass graft assessment. FINDINGS This examination was performed by Dr. Escalante intraoperatively. There is apparently placement of a distal left external iliac stent. The patient has diffuse atherosclerotic disease. The right lower extremity was subsequently studied with a fem-pop graft. Details of the procedure can be found in Dr. Escalante's nodes. Total fluoroscopy time for the procedure is listed at 5 minutes and 22 seconds. A total of 22 images were captured. Dictated by... Jann Worthington M.D. THIS IS AN ELECTRONICALLY VERIFIED REPORT Jann Worthington M.D. at 03/14/2017 7:11 AM Zane TD: 03/12/2017 16:01 JOB #: [id number] MEDICAL IMAGING REPORT Page 1 of 1 COPY
--- NOTE | ~2017-03-02 | A ---
[facility] Nutrition Therapy DATE: 03/13/17 Patient: KATIA SIFUENTES Physician: FARA Address: [address] [place] [address] STREET Room/Bed: [address] [place] [address], Zip: [place] [address] Admit Date: 03/03/17 Date of : 59 Height: 5 6 Weight: 146 66.4 NUTRITIONAL ASSESSMENT: REASON: LOS ASSESSMENT PT IS 61 Y.O. MALE ADMITTED FOR LOWER GI BLEED PMH: (L) HAND CONTRACTED, PAD S/P (R) AKA, HTN, HLD, DM, CVA, SMOKER Anthropometrics: 5'6", WT: 148# (67 KG), BMI: 23.9 -WEIGHTS HAVE BEEN STABLE SINCE ADMIT Labs: CA+:7.8, ALB: 3.0, NA+:132, A1c: 6.6 Meds: COLACE, ZOFRAN, FUROSEMIDE, LIPITOR, PROTONIX, NOVOLOG, MAG-OX I/O & Bowel function: 4422/125 Skin Integrity: (L) 2ND TOE OPEN SORE NOTED; ALSO (L) LEG DM WOUND; CYANOTIC (L) TOES Estimated Nutrition Needs: INCREASED NEEDS 2' SKIN BREAKDOWN NOTED Assessment: CHART REVIEWED AND EVENTS NOTED. PT SEEN FOR LENGTH OF STAY ASSESSMENT (10 DAYS). PT REPORTS GOOD PO INTAKE AND APPETITE, NO C/O N/V/D. PT DENIES ANY RECENT WEIGHT LOSS. PER RN AND CHART, PT ADMITTED FOR LOWER GI BLEED 2' ?ISCHEMIC COLITIS. THIS RD ENCOURAGED PO AND SUPPLEMENT INTAKE, PT AGREED TO GLUCERNA SHAKES BID, RD WILL ORDER. PT REPORTED NO DIET QUESTIONS AT THIS TIME. RD TO FOLLOW. Dx: ALTERED NUTRIENT UTILIZATION R/T PMH AEB NEED FOR THERAPEUTIC DIET ORDER. Intervention: 1. CC+HH+ FLUID RESTRICTION DIET 2. GLUCERNA SHAKES BID Monitoring, Evaluation and Goals: 1. ORAL INTAKE; CONSUME >50% OF MEALS AND SUPPLEMENTS (PO>50%) 2. SKIN; PROMOTE SKIN HEALING 3. LABS; WNL MONITOR: -PO INTAKE/APPETITE -WEIGHTS -SUPPLEMENT INTAKE Recommendations: [facility] Nutrition Therapy DATE: 03/13/17 Patient: KATIA SIFUENTES Physician: FARA Address: [address] [place] [address] STREET Room/Bed: [address] [place] [address], Zip: [place] [address] Admit Date: 03/03/17 Date of : [birth year] Height: 5 6 Weight: 146 66.4 1. ORDER EUGENE GLUCERNA SHAKES BID W/MEALS 2. CONSIDER ADDING MVI W/MINERAL DAILY TO PROMOTE SKIN HEALING RD WILL F/U PER PROTOCOL PT IS MILDLY COMPROMISED Respectfully, MAGDALENA GORDON MS, RD, LD [facility] cc: client file
--- NOTE | ~2017-03-02 | EKG ---
PATIENT: KATIA SIFUENTES UNIT #: [id number] Ventricular Rate: 89 BPM Atrial Rate: 89 BPM P-R Interval: 124 ms QRS Duration: 98 ms Q-T Interval: 398 ms QTC Calculation(Bezet): 484 ms P Richmond: 50 degrees Calculated R Richmond: -9 degrees Calculated T Richmond: -21 degrees Diagnosis Line: Sinus rhythm with frequent Premature ventricular Diagnosis Line: complexes Diagnosis Line: Nonspecific T wave abnormality Diagnosis Line: Prolonged QT Diagnosis Line: Abnormal ECG Diagnosis Line: No previous ECGs available Diagnosis Line: Confirmed by JAYLEN FINK MD ([id number]) on Diagnosis Line: 03/08/2017 6:49:13 AM INTERPRETING MD: PAIGE
--- NOTE | ~2017-03-02 | TOC ---
Unit #: [id number] #: [id number] Patient: KATIA SIFUENTES [id number] [address] [place], [place] [address] [id number] I MR#: [id number] NAME: KATIA SIFUENTES ROOM: 224 Age: 61 Sex: M Admission Date: 03/03/2017 : 1955 Attending Physician: Bradley Hansen M.D. Primary Care Physician: No Primary Care Physician TRANSFER OF CARE SUMMARY WORKING DIAGNOSES 1. Lower GI bleed, consistent with ischemic colitis per pathology, following colonoscopy. The patient is on Levaquin at this time. 2. SIRS present on admission due to cellulitis of the foot. 3. Acute kidney injury, prerenal, which has resolved at this time and the patient has been off of fluid. 4. Peripheral artery disease with right jwfdr-crm-mrhv amputation and left leg that is needing a bypass. This will be further planned per vascular surgery with Dr. Murrell. 5. 2.3 cm hypoechoic mass versus pseudo mass. The patient is to follow up with outpatient neurology. 6. Essential hypertension. Blood pressure has been stable. 7. Diabetic (1) on Levaquin. Wound care per podiatry's recommendation. 8. Type 2 diabetes. A1c is 6.6. Sliding scale insulin and Accu-Checks. 9. Hyperlipidemia on Lipitor. 10. History of anxiety and depression. Stable without any homicidal or suicidal ideation. CONSULTANTS Dr. Santa of gastroenterology. [facility] podiatry through [facility]. Dr. Nix with cardiology for cardiac clearance for upcoming bypass. PROCEDURES PERFORMED So far the patient had a colonoscopy by Dr. Santa on 03/04/2017. She was found to have large ulcer with patchy colitis and possible sigmoid colon, most likely ischemic. Biopsy was taken. Polyp approximately 6 mm in the rectum was also taken. The rest of the colon to cecum was normal, but for diverticulosis. DIAGNOSTIC DATA IMAGING: X-ray of the abdomen 03/03/2017. There is a 13 mm calcification at the left side of the abdomen, but that might represent a renal stone, otherwise study is normal. Renal ultrasound 03/03/2017 with impression of nonobstructing calculus lower poll left kidney. Both kidneys are normal in size. There is no evidence of urinary retention. A 2.3 hypoechoic mass or pseudo mass right mid kidney was identified by the technologist, but is poorly characterized. Recommend to follow up with CT or MRI. Left lower extremity YUSRA with impression severe arterial insufficiency of the left lower extremity based on YUSRA. Unit #: [id number] #: [id number] Patient: KATIA SIFUENTES MRI of the foot with and without contrast with impression of severely motion limited exam allowing for this there is a suspected soft tissue wound along the dorsal aspect of the second toe with mild associated soft tissue edema and inflammation. No gross evidence of drainable fluid collection to suggest abscesses. No gross evidence of osteomyelitis or joint effusion. X-ray of the foot 03/04/2017, impression of no acute abnormality seen within the left foot. Of note, advanced osteopenic type changes are seen, which can limit sensitivity for detection of subtle nondisplaced fracture. The irregularity of the interphalangeal joint of the second toe described on the previous study has no plain film correlate on today's exam. Surgical fixation changes of the distal fibula. LABORATORY: BMP with glucose 87, BUN 16, creatinine 0.9, sodium 139, potassium 4.3, chloride 103, CO2 25, calcium 8.8, magnesium 1.4, total protein 6.1, albumin 3.0, total bilirubin 0.4, AST 17, ALT 16, alkaline phosphatase 47, hemoglobin A1c 6.6. Please note the patient's c-reactive protein was 1.7. CBC with white blood cell count 9.7, RBC 4.51, hemoglobin 13.1, hematocrit 40.6, MCV 89.9, MCH 29.1, MCHC 32.4, RDW 15.4, platelets 295, MPV 7.7. HOSPITAL COURSE The patient is a pleasant 61-year-old male with a past medical history of type 2 diabetes, peripheral artery disease, with right duays-ras-vivi amputation following gangrenous foot. 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 Left-handed persistent contracture. Left ankle ORIF. The patient was sent to the emergency department due to symptoms of blood in the stool. The patient stated that he had two days of diarrhea and had a large amount of bright red blood per rectum in his stool. The patient had denied abdominal pain on exam, but had rectal pain. He was lightheaded upon standing. The patient was seen in the emergency department, where he was mildly tachycardic at 102. Rectal exam revealed gross blood in the rectal vault. He was admitted through the emergency department for inpatient status due to lower GI bleeding. Dr. Santa of gastroenterology had performed a colonoscopy, which found that the patient's colon was consistent with colitis. A biopsy was done and it revealed that it was consistent with ischemic colitis. The patient has tolerated antibiotics and has been transitioned to Levaquin orally. The patient is tolerating oral intake well at this time. Upon exam it was found the patient's left leg, which is the non-amputated leg, had a nonhealing wound and had almost no pulse to the dorsalis pedis and his toes and foot were severely discolored and cold to touch. Therefore, an YUSRA and MRI were done for this foot and a salesforce business analyst was consulted. MRI revealed no drainable abscess, no involvement of osteomyelitis, but the YUSRA did reveal that the patient had severe artery disease in the left lower extremity which is the only extremity that is left. Therefore, vascular surgery was consulted. The patient had an arteriogram which was done today and there is planning for vein mapping for likely a bypass with vascular surgery. At this time the patient will have cardiology clearance prior to his surgery. Any further testing will be done as the hospitalization progresses. CURRENT MEDICATIONS 1. Lipitor 10 mg p.o. at bedtime. 2. Cymbalta 20 mg p.o. daily. 3. BuSpar 10 mg p.o. t.i.d. Unit #: [id number] #: [id number] Patient: KAITA SIFUENTES Eileen 4. Coreg 6.25 mg p.o. b.i.d. 5. Hydrocodone with acetaminophen 5/325 mg 1 tablet q.4 h. p.r.n. moderate to severe pain. 6. Protonix 40 mg p.o. daily. 7. Claritin D 24 Hour, one tablet p.o. daily. 8. Neurontin 300 p.o. daily. 9. Celexa 20 mg p.o. daily. 10. Baclofen 10 mg daily. 11. Low-dose sliding scale insulin prior to meals and at bedtime. 12. Tylenol 650 mg p.o. q.4 h. p.r.n. mild pain. 13. Nicotine patch 21 mg p.o. transdermally daily. 14. Levaquin 750 mg p.o. daily until 03/08/2017. This dictation took 35 minutes to include patient education for patient and his family and to coordinate care, as well as chart review. Dictated by... Sofi Almonte PA-C for Sondra Salazar TD: 03/07/2017 13:17 JOB #: [id number] TRANSFER OF CARE SUMMARY Page 1 of 1 X X TRANSFER OF CARE SUMMARY
--- NOTE | ~2017-03-02 | CO ---
Unit #: [id number] #: [id number] Patient: KATIA SIFUENTES [id number] [address] [place], [place] [address] [id number] I MR#: [id number] NAME: KATIA SIFUENTES. ROOM: 574 Age: 61 Sex: M Admission Date: 03/03/2017 : 1955 Attending Physician: Bradley Hansen M.D. Consultation Date: 03/17/2017 CONSULTATION REPORT BRIEF HISTORY The patient is a 61-year-old gentleman, who presents status post left femoral-popliteal bypass, who now presents with a 2-day history of increasing right lower quadrant abdominal pain. He states that he was assisted from in getting out of bed and has had increasing pain since that time. He describes pain as constant and located specifically in the right lower quadrant. PAST MEDICAL HISTORY Hypertension, hyperlipidemia, diabetes, and peripheral vascular disease. PAST SURGICAL HISTORY He has had a femoral-popliteal bypass. No abdominal operations. He had a left ankle reduction. SOCIAL HISTORY Does smoke. No alcohol. FAMILY HISTORY Negative for GI malignancy. REVIEW OF SYSTEMS No cardiopulmonary complaints at this time. Else, 10 systems reviewed and negative. PHYSICAL EXAMINATION GENERAL: He is awake, alert, appropriate, in no distress. VITAL SIGNS: Currently afebrile. HEENT: Unremarkable. NECK: Supple. No JVD. Trachea midline. LUNGS: Clear to auscultation. Bilateral breath sounds symmetric. CARDIOVASCULAR: Regular rate and rhythm. ABDOMEN: Soft. It is tender in the right lower quadrant, point tenderness at McBurney point. There is no rebound. No masses. No hernias. EXTREMITIES: No clubbing, cyanosis, or edema. DIAGNOSTIC STUDIES LABORATORY RESULTS: Show a white count of 9.6 and hemoglobin 10.3. IMAGING STUDIES: CT scan shows a fluid collection around the cecum dilated appendix. ASSESSMENT Unit #: [id number] #: [id number] Patient: KATIA SIFUENTES Acute appendicitis. PLAN Recommend diagnostic laparoscopy and laparoscopic appendectomy. Discussed in detail. We will proceed today. Dictated by... Jann Heath M.D. AMAN/abbey TD: 03/17/2017 06:44 JOB #: [id number] CONSULTATION REPORT Page 1 of 1 X Jann Heath MD CONSULTATION REPORT
--- NOTE | ~2017-03-02 | FU ---
[facility] Nutrition Therapy DATE: 03/19/17 Patient: KATIA SIFUENTES Physician: FARA Address: [address] Room/Bed: [address], Zip: [place] [address] Admit Date: 03/03/17 Date of : [birth year] Height: 5 6 Weight: 168 76.5 NUTRITION MONITORING/FOLLOW-UP: Reason: PT SEEN FOR FOLLOW-UP DX: LOWER GI BLEED Anthropometrics: 5'6", WT: 168# (76 KG), BMI: 27.1 -ADMIT WEIGHT: 148#? Labs: CA+:8.1, ALB: 2.9, AST: 52, NA+:134 Meds: MYLANTA GAS, COLACE, PROTONIX, ZOFRAN, LIPITOR, NOVOLOG I&O's: 700/100 Skin: ISSES PREVIOUSLY NOTED; (L) GROIN KATELYN LLE 1+ EDEMA Assessment: CHART REVIEWED AND EVENTS NOTED. PT SEEN FOR FOLLOW-UP. PT REPORTS GOOD PO INTAKE AND APPETITE, NO C/O N/V/D. PT HAD BREAKFAST AND LUNCH TRAY AT BEDSIDE-NOTED PT ATE 100% BOTH MEALS. RD ENCOURAGED INCREASED PROTEIN INTAKE (RD OBSERVED NO PROTEIN AT EACH MEAL). PT REPORTS DRINKING GLUCERNA SHAKES BID. PT REPORTED NO DIET QUESTIONS AT THIS TIME. RD TO REMAIN AVAILABLE. Dx: ALTERED NUTRIENT UTILIZATION R/T PMH AEB NEED FOR THERAPEUTIC DIET ORDER.-ACTIVE Intervention: 1. CC DIET 2. GLUCERNA SHAKES BID Monitoring, Evaluation and Goals: 1. ORAL INTAKE; CONSUME >50% OF MEALS W/NO C/O N/V/D-MET 2. LABS; WNL-ACTIVE 3. SKIN; PROMOTE SKIN HEALING-ACTIVE MONITOR: -PO INTAKE/APPETITE -SUPPLEMENT INTAKE -LABS Recommendations: 1. CONTINUE TO ENCOURAGE ADEQUATE KCAL, PROTEIN AND FLUID INTAKE 2. ADD MVI W/MINERAL DAILY TO PT'S CURRENT MEDICATION REGIMEN 2' CURRENT CONDITION RD WILL F/U PER PROTOCOL PT IS MILDLY COMPROMISED [facility] Nutrition Therapy DATE: 03/19/17 Patient: KATIA SIFUENTES Physician: FARA Address: [facility] [address] Room/Bed: [address] [place] [address], Zip: [place] [address] Admit Date: 03/03/17 Date of : [birth year] Height: 5 6 Weight: 168 76.5 Respectfully, MAGDALENA GORDON MS, RD, LD [employer] [facility] cc: client file
--- NOTE | ~2017-03-02 | CO ---
Unit #: [id number] #: [id number] Patient: KATIA SIFUENTES [id number] [address] [place], [place] [address] [id number] MR#: [id number] NAME: KATIA SIFUENTES ROOM: 224 Age: 61 Sex: M Admission Date: 03/03/2017 : 1955 Attending Physician: Bradley Hansen M.D. Consultation Date: 03/07/2017 CONSULTATION REPORT REASON FOR CONSULTATION Preoperative evaluation. HISTORY OF PRESENT ILLNESS This is a 61-year-old white male, who originally came to the hospital with a complaint of hematochezia. He has since underwent colonoscopy, which showed a large patchy ulcerative colitis. He also had a nonhealing wound to the second left toe for more than a week. Vascular was asked to see the patient. ABIs were at normal on the left. He had a previous right hpauq-ujy-sfgm amputation, because of peripheral artery disease. He has undergone left lower extremity angiogram, where he was found to have a distal SFA occlusion. He has plans for bypass surgery. Cardiology was consulted for preoperative evaluation. From a cardiac standpoint, the patient has risk factors for ischemic heart disease includes hypertension, hyperlipidemia, diabetes, and nicotine abuse. He is known to have bilateral carotid stenosis, where the patient reported 100% stenosis on the right and 40% on the left. He had a stress test in 2014 prior to his ziivw-ocf-rfyh amputation that was told to be normal. He has also been told to have an irregular heartbeat. No prior cardiac catheterization. He denies any symptoms of angina. He is wheelchair bound and his activities are limited, because of a cerebrovascular accident that left him with left-sided weakness. He continues to smoke. Echocardiogram this admission found the patient to have severe left ventricular systolic dysfunction with ejection fraction of 20% to 25%. There was no significant valvular heart disease. His EKG shows no acute changes. PAST MEDICAL HISTORY 1. Stress test in 2014 told normal. No details available. 2. The patient reported irregular heartbeat. 3. Hypertension. 4. Hyperlipidemia. 5. Diabetes mellitus, type 2. 6. Cerebrovascular accident with left-sided weakness in 2009. 7. Peripheral artery disease, status post right fphcj-kik-utuk amputation. 8. Bilateral carotid stenosis with 100% on the right and 40% on the left (the patient reported). 9. Active smoker. 10. Wheelchair bound. PAST SURGICAL HISTORY 1. Right dfhhc-ekq-fmmr amputation. 2. Left ankle open reduction and internal fixation. Unit #: [id number] #: [id number] Patient: KATIA SIFUENTES SOCIAL HISTORY The patient lives with his son. He assist him with his care. He is wheelchair bound. Smokes half a pack of cigarettes a day down from three packs a day. Quit drinking 10 years ago. Has occasional marijuana use. FAMILY HISTORY Negative for coronary artery disease. ALLERGIES Shellfish. HOME MEDICATIONS Aspirin 81 mg daily; baclofen 10 mg daily p.r.n.; buspirone 10 mg t.i.d.; carvedilol 6.25 mg b.i.d.; Keflex 500 mg t.i.d.; citalopram 20 mg daily; clindamycin 300 mg t.i.d.; duloxetine 20 mg t.i.d.; gabapentin 300 mg; hydrochlorothiazide 25 mg b.i.d.; lisinopril 5 mg daily; loratadine 10 mg daily p.r.n.; lovastatin 40 mg daily; metformin 500 mg b.i.d.; Protonix 40 mg daily; prednisone 20 mg daily p.r.n. REVIEW OF SYSTEMS CONSTITUTIONAL: Negative for fever or chills. Has no weight gain or weight loss. HEENT: No headache, hearing, vision changes, difficulty with swallowing. He denies dizziness. CARDIOVASCULAR: Has no symptoms of angina. Denies palpitations. No paroxysmal nocturnal dyspnea or orthopnea. No syncope or near-syncope. RESPIRATORY: Negative for dyspnea, cough, or hemoptysis. GASTROINTESTINAL: No abdominal pain, nausea, or vomiting. No constipation. No melena. EXTREMITIES: On the left, has no lower extremity edema. SKIN: Noted for round ibeth size wound to his second great toe. DIAGNOSTIC STUDIES LABORATORY RESULTS: Sodium 139, potassium 4.3, BUN 16, creatinine 0.9, magnesium 1.4. White count 9.7, hemoglobin 13.1, hematocrit 40.6, platelet count 295. CARDIOVASCULAR STUDIES: EKG; normal sinus rhythm with a rate of 89 beats per minute with sinus arrhythmia. It was noted for frequent premature ventricular complexes and premature atrial complexes. IMPRESSION 1. Lower gastrointestinal bleeding secondary to ischemic colitis. 2. Peripheral artery disease with history of right yuyty-lfd-walh amputation with left distal superficial femoral artery occlusion. 3. Hypertension. 4. Hyperlipidemia. 5. Diabetes mellitus, type 2. 6. Premature ventricular complexes. 7. Nicotine abuse. PLAN 1. Cardiology was consulted for preoperative evaluation. The patient has no symptoms of angina. He has not been able to do anything physically. With ejection fraction of 20%, most likely he has ischemic heart disease. Cardiac catheterization will be done to define his coronary anatomy. This Unit #: [id number] #: [id number] Patient: KATIA SIFUENTES has been discussed with the patient and family in detail and they are agreeable. 2. We will increase carvedilol for control of arrhythmias. 3. Start on afterload reduction with WALI inhibitor. 4. Decision regarding operative clearance will be deferred until after cardiac catheterization is completed. Dictated by... Marc AlemanPEduinREduinNEduin for Sondra Sanchez/abbey TD: 03/09/2017 03:12 JOB #: [id number] CONSULTATION REPORT Page 1 of 1 X Supa Billy APRN X CONSULTATION REPORT
--- NOTE | ~2017-03-02 | HP ---
Unit #: [id number] #: [id number] Patient: KATIA SIFUENTES [id number] [address] [place], [place] [address] [id number] I MR#: [id number] NAME: KATIA SIFUENTES. ROOM: 26424 Age: 61 Sex: M Admission Date: 03/03/2017 : 1955 Attending Physician: Dinorah Hay M.D. Primary Care Physician: No Primary Care Physician HISTORY AND PHYSICAL CHIEF COMPLAINT Painless lower GI bleed. HISTORY This timoteo 61-year-old male with hypertension, previous CVA, is admitted for lower GI bleeding. Patient states that two days ago he had diarrhea. Yesterday noted a large amount of bright red blood mixed in with the stool afterwards. However, the patient is color blind. Denied abdominal pain with the above, definite rectal pain, lightheadedness, or any other symptoms. Besides aspirin, he takes no other anticoagulants. He presented to this emergency department late last evening with stable vital signs, although mildly tachycardic to 102. Rectal examination revealed gross blood in the rectal vault. Labs are notable for a normal hemoglobin. BUN and creatinine are abnormal without previous values for comparison. In the ER, the patient was given 40 mg of IV Protonix and 500 mL of normal saline. PAST MEDICAL HISTORY 1. Hypertension. 2. Right hemispheric CVA resulting in left hemiparesis. 3. Right AKA following gangrene. 4. Left ankle ORIF. ALLERGIES Shellfish. HOME MEDICATIONS Aspirin and a blood pressure medicine of unknown name. FAMILY HISTORY Negative for colon or gastric disease. SOCIAL HISTORY The patient lives with a roommate. He started smoking age 14, currently is smoking a pack per day of tobacco. Does not drink alcohol. REVIEW OF SYSTEMS Notable for a lower GI bleeding as dictated above, hypertension, previous CVA with left-sided hemiparesis, right AKA for gangrene, left ankle surgery, tobacco abuse. All other systems were reviewed and are negative. PHYSICAL EXAMINATION GENERAL: Timoteo 61-year-old male currently in no acute distress. VITAL SIGNS: Temperature 98, pulse 102, respirations 14, blood pressure Unit #: [id number] #: [id number] Patient: KATIA SIFUENTES 122/87, O2 saturations 95% on room air. HEENT: Eyes - PERRLA. Extraocular muscles are intact. Pharynx is benign. Poor dentition, left lower facial droop. NECK: Supple without adenopathy or thyromegaly. CHEST: Mild expiratory wheeze. CARDIAC: Normal S1 and S2 without S3, S4 or murmur. ABDOMEN: Bowel sounds are present. No hepatosplenomegaly, tenderness, or masses. EXTREMITIES: Markedly diminished left pedal pulse. There is a superficial ulcer left joe. Right AKA with clean, dry, stump. RECTAL: Gross blood in the rectal vault per the ER physician. NEUROLOGIC: Patient is awake, alert, and oriented. Cranial nerves reveal left lower facial droop. Left hemiparesis. DIAGNOSTIC STUDIES LABORATORY STUDIES: Hematocrit is 44.2, white blood count is 14, normal platelet count, coags are normal. SMA 12 - BUN 44, creatinine 2.5 without previous values to compare to, chloride is 97. IMAGING STUDIES: KUB - there may be a left renal calculus but I am having difficulty with the voice clip, await formal acrylic fabricator. ASSESSMENT 1. Painless lower GI bleeding. 2. Prior right hemispheric CVA with left hemiparesis. 3. Right AKA after gangrene. 4. Acute versus chronic kidney disease. There may be a possible renal stone on KUB but again voice clip needs to be completely transcribed. 5. Tobacco abuse. 6. Essential hypertension. PLANS 1. IV fluids. 2. Obtain urinalysis, post void bladder scan, renal ultrasound. 3. Serial H and H. 4. GI consultation. 5. Hold aspirin. 6. Obtain home medication list. Dictated by Dinorah Hay M.D. AML/ts TD: 03/03/2017 06:49 JOB #: [id number] Unit #: [id number] #: [id number] Patient: KATIA SIFUENTES HISTORY AND PHYSICAL Page 1 of 1 X Dinorah Hay MD X HISTORY AND PHYSICAL
--- NOTE | ~2017-03-02 | OR ---
Unit #: [id number] #: [id number] Patient: KATIA SIFUENTES [id number] [facility] [address] [facility]. [place], [place] [address] [id number] I MR#: [id number] NAME: KATIA SIFUENTES ROOM: 224 Date of Procedure: 03/07/2017 Admission Date: 03/03/2017 Surgeon: Shine Escalante M.D. : 1955 Attending Physician: Bradley Hasnen M.D. OPERATIVE REPORT PROCEDURES PERFORMED 1. Ultrasound-guided access of right common femoral artery. 2. Introduction of catheter into the aorta, nonselective. 3. Abdominal aortography. 4. Second-order catheterization of the lower extremity, left. 5. Angiography, unilateral, radiological SNI. 6. Percutaneous closure of right common femoral artery. INDICATIONS FOR PROCEDURE This is a 61-year-old gentleman who has a history of peripheral vascular disease, and is status post right above-knee amputation for after a failed bypass for gangrene done back in [place]. He was admitted to [facility] with concerns for GI bleeding. On exam, he was noted to have a nonhealing ulceration on his left second toe, which the family states has been present for about 3 to 4 weeks. He has been followed by Podiatry for the foot wound. He had YUSRA that demonstrated a right YUSRA of 0.36. Given the findings of peripheral vascular disease on ABIs and the presence of a nonhealing wound, the recommendation to the patient was for left lower extremity angiogram with possible intervention. I discussed with the patient the risks and benefits of the procedure. The risks include, but were not limited to, access site bleeding, injury to the blood vessels, thrombosis, need for further procedures, and contrast induced nephropathy potentially requiring dialysis. The benefit of the procedure would be to evaluate his blood flow, and improved circulation with the stent or balloon angioplasty if possible. He expressed understanding and elected to proceed with the operation. PREOPERATIVE DIAGNOSIS Left lower extremity atherosclerosis with gangrene. POSTOPERATIVE DIAGNOSIS Left lower extremity atherosclerosis with gangrene. ESTIMATED BLOOD LOSS 10 mL. CONTRAST USED 75 mL, x4, 11.4 minutes. FINDINGS 1. Patent right and left renal arteries, both with accessories. 2. Small iliac arteries bilaterally with a right iliac stent, which Unit #: [id number] #: [id number] Patient: KATIA SIFUENTES appears patent. 3. Left femoral artery bifurcation is normal. 4. Left superficial femoral artery is small roughly 4 to 5 mm in diameter throughout. There is a distal SFA occlusion at the adductor canal with below-knee popliteal reconstitution. 5. Tibial runoff consists of posterior tibial artery, which is relatively disease free from its takeoff from the tibioperoneal trunk down to the ankle with plantar runoff. 6. No anterior tibial or peroneal artery is visualized. DESCRIPTION OF PROCEDURE After informed consent was obtained, the patient was brought to the operating room table, placed in supine position. The patient's right and left groins were prepped and draped in standard fashion. At this point, a time-out procedure was performed. Using ultrasound guidance, I identified the femoral bifurcation, and using fluoroscopy, I confirmed the lower third of the femoral head. Initial attempts to access the right common femoral artery were difficult given the calcification of the femoral artery. Ultimately, I was able to access the right common femoral artery using ultrasound. With a micro needle, advanced the micro Glidewire into the external iliac artery. I confirmed my position of my wire with fluoroscopy. I then made a skin dale with a #11 blade, and exchanged out my micro needle for 4-V[place] Citizen micro catheter. I then advanced a starter wire up into the aorta. I serially dilated the tract first with the dilator over 5-V[place] Citizen sheath, and I then advanced a 5-V[place] Citizen sheath over the wire. The sheath was then flushed. I then introduced an Omni Flush catheter into the aorta and parked it at level of L1/L2. I performed initial abdominal aortogram at 20 mL total. Of note, given his recent acute renal injury, the patient was given 50:50 mixture of contrast. The abdominal aortogram demonstrated patent bilateral renal arteries and bilateral accessory renal arteries. There was no significant aortoiliac disease. There was a presence of a right iliac artery stent from the common iliac to the external iliac artery. It appeared benign with no evidence of stenosis. The left common iliac artery was patent as was the external iliac artery. There was roughly 15% to 20% stenosis of the left external iliac artery just distal to the iliac bifurcation. I then attempted to go up and over the aortic bifurcation, which was very tight. I was able to get a Glidewire into the left common femoral artery, but the Omni Flush catheter would not advance over the stiff angled Glidewire because of the tightness of the aortic bifurcation. Ultimately, I removed the Omni Flush catheter, and advanced a 4-V[place] Citizen angled glide catheter up and over. The glide catheter was engaged in the left common femoral artery. I then shot a hand injection of the left lower extremity. Left angled oblique view of the left common femoral bifurcation demonstrated no significant common femoral artery disease or proximal superficial femoral artery disease. At the distal portion of the superficial femoral artery, it occluded, likely at the adductor canal. There was below-knee popliteal reconstitution. I could see the posterior tibial artery takeoff with no evidence of stenosis or disease. The posterior tibial artery was the main runoff down to the ankle, at which point, it then branched into the plantar arteries. No anterior tibial artery or peroneal artery were seen. Pedal runoff itself was relatively poor depended upon the PT artery. There was not significant outflow to the toes that I could see as well. This was performed with a magnified view, and 100% contrast. At this point, I believe that the patient would be best served with a bypass procedure for healing of his wound, rather Unit #: [id number] #: [id number] Patient: KATIA SIFUENTES than peripheral intervention. The catheter was removed. The patient had received heparin bolus during the case. A 5-V[place] Citizen Mynx device was deployed in the right groin, a manual pressure was held for additional 5 minutes for adequate hemostasis. At the end of the case, all counts were correct. I was present for the entire duration of procedure. Dictated by... Sondra Briggs TD: 03/08/2017 06:46 JOB #: [id number] OPERATIVE REPORT Page 1 of 1 X X PROCEDURE OPERATIVE NOTE
--- NOTE | ~2017-03-02 | TOC ---
Unit #: [id number] #: [id number] Patient: KATIA SIFUENTES [id number] [facility]. [place], [place] [address] [id number] I MR#: [id number] NAME: KATIA SIFUENTES ROOM: 574 Age: 61 Sex: M Admission Date: 03/03/2017 : 1955 Attending Physician: Bradley Hansen M.D. Primary Care Physician: No Primary Care Physician TRANSFER OF CARE SUMMARY ADDENDUM This is an ongoing transfer of care continuing with the phone that was dictated by myself on 03/07/17. Since the time of that dictation, the patient has been seen by twister hand for cardiac clearance. A 2-D echo was performed which revealed that the patient has severe ischemic cardiomyopathy with a predicted ejection fraction of 20 to 25%. Therefore, it was felt that the patient needed an ischemic workup. Heart catheterization has been done by Dr. Nix. No intervention was needed. No intervention was needed and the patient was felt stable to proceed with surgery for his femoropopliteal bypass. The patient did undergo femoropopliteal bypass with Dr. Escalante on 03/12/17. The patient tolerated the procedure fairly well. The estimated blood loss was 10 mL. Following that the patient did have paraphimosis needing catheter placement. [facility] had seen the patient in consultation and the patient has had the catheter removed at this time. The patient had been on a PC pump due to severe pain following the surgery and blood pressure has been fairly hypotensive. At this time, the Dilaudid pump has been discontinued. Blood pressure medicine is being held due to his hypotension. The patient is getting fluid resuscitation as it is felt that the patient does have some component of hypovolemia with volume depletion needing gentle IV fluid. At the time of this dictation, the patient's blood pressure has responded being off of the PC pump with fluid resuscitation. The last blood pressure reading over the past four hours has been systolic of 103 to 121/64 to 72. The patient is still in much pain. We will attempt to give patient pain control with oral [place] and to hold if systolic blood pressure is less than 110. The patient has had a CT scan of his abdomen and pelvis which revealed CT evidence of obstruction. Given his on going suprapubic pain, I did assess a urinalysis following surgery which was actually very unremarkable. I will be checking for any infectious process with a chest x-ray and to rule out the blood culture. IMAGING SINCE THE TIME OF DICTATION 1. Ultrasound vein map done on 03/07/17. Impression: The left great saphenous vein is patent and suitable for bypass purposes from the left groin to the ankle. The left lesser saphenous vein is patent and suitable for bypass purposes in the calf. 2. Angiogram done on 03/12/[address] Murrell reveals the patient had a distal left external iliac stent, diffuse atherosclerotic disease. The left lower extremity had a fem-pop graft study. Please refer to Dr. Escalante's full dictated noted of the procedure. Unit #: [id number] #: [id number] Patient: KATIA SIFUENTES 3. CT abdomen and pelvis on 03/14/17. Impression: No CT finding to explain the patient's lower gastrointestinal bleeding. Bilateral nonobstructing renal calculi. Hepatic steatosis. Postsurgical changes in left inguinal region. President & Founder, that I have not mentioned, is Dr. Escalante of Vascular Surgery. PROCEDURES SINCE THEN 1. The patient had a left heart cath with Dr. Nix on 03/10/17. Impression: Left ventricular ejection of 25 to 30%. LM is normal limits. LAD 30 to 40% stenosis. Ramus has 50% stenosis. Left circumflex 50% and mid of 60% stenosis. RCA 60 to 70% distally. The patient was okay to proceed with surgery for a femoral bypass graft. Please refer to Dr. Nix's full dictated procedure for further details. 2. The patient had a bypass with stent by Dr. Escalante on 03/12/17. Please refer to his full dictated note for further details. Further hospital course will be proceed from here on out. This dictation took 35 minutes, which includes patient education and to review records. Dictated by... Sofi Almonte PA-C for Sondra Salazar TD: 03/14/2017 12:35 JOB #: [id number] TRANSFER OF CARE SUMMARY Page 1 of 1 X X TRANSFER OF CARE SUMMARY
--- NOTE | ~2017-03-02 | OR ---
Unit #: [id number] #: [id number] Patient: KATIA SIFUENTES [id number] [facility] [address] [facility]. [place], [place] [address] [id number] I MR#: [id number] NAME: KATIA SIFUENTES. ROOM: 574 Date of Procedure: 03/12/2017 Admission Date: 03/03/2017 Surgeon: Shine Escalante M.D. : 1955 Attending Physician: Bradley Hansen M.D. Primary Care Physician: Primary Care Physician No OPERATIVE REPORT PROCEDURES PERFORMED 1. Left femoral to below-knee popliteal bypass with vein, nonreversed. 2. Left external iliac artery stent (5 x 29 mm, 6 x 59 mm VBX). 3. Selective left lower extremity angiogram. INDICATIONS FOR PROCEDURE This is a 61-year-old gentleman with a history of a right above-knee amputation in the past for what sounds like gangrene and a failed bypass. He was admitted to [facility] with a history of GI bleeding, he was noted to have nonhealing ulcers on his left second toe as well as left dorsum of his foot. The patient states that these wounds have been in place for about 3 to 4 weeks, have not healed. The patient underwent ABIs, which demonstrated his left YUSRA was roughly 0.32. I took the patient to the angio suite for an arteriogram of the left lower extremity, which demonstrated small vessels of his iliac arteries, some scattered left superficial femoral artery disease, and a distal superficial femoral artery occlusion of approximately 13 cm at adductor canal, with popliteal artery reconstitution below the knee. He had a single-vessel runoff of his posterior tibial artery. I talked to the patient about the risks and benefits of a femoral bypass procedure. The risks include, but not limited to, bleeding, nerve injury, injury to the blood vessels, graft thrombosis, wound infection, heart attack, stroke, and even . The benefit of the procedure would be to improve his circulation, so he can heal the wounds on his feet. The patient understands that he is still at risk for above-knee amputation, especially if the bypass fails. The patient expressed understanding, and elected to proceed with the operation. PREOPERATIVE DIAGNOSIS Atherosclerosis with ulceration, left leg. POSTOPERATIVE DIAGNOSIS Atherosclerosis of lower extremity, left leg with ulceration. PHYSICAL SCIENCE TEACHER Jean Jeffrey CSA. DESCRIPTION OF PROCEDURE After informed consent was obtained, the patient was brought to the operating room table and placed in the supine position. The patient's left lower abdomen, groin, and leg were prepped and draped in sterile fashion. I had previously marked the course of the left great saphenous Unit #: [id number] #: [id number] Patient: KATIA SIFUENTES vein at the bedside. The patient had a preoperative vein mapping that demonstrated an adequate left great saphenous vein for bypass. At this point, a time-out procedure was performed. The left common femoral artery was dissected out with a vertical skin incision at the groin. We dissected through the subcutaneous tissue, until the femoral sheath, identified the left common femoral artery. It was then circumferentially dissected, mobilized superiorly and inferiorly. The superficial femoral artery and profunda artery were also identified. Vessel loop control was obtained of the profunda artery. There were several branches coming off the proximal aspect of the common femoral artery, which were controlled with silk ties. The left great saphenous vein was identified medial to the common femoral artery. Its junction at the saphenofemoral junction was identified. The saphenous vein was then dissected distally, tied off branches with 3-0 or 4-0 silk ties. The vein appeared to be of adequate caliber in size. We carried down the dissection down the thigh up to the above-knee popliteal artery segment. At this point, it bifurcated into an anterior and posterior branch. I began the dissection of the distal great saphenous vein at the below-knee popliteal artery segment. I made a skin incision one fingerbreadth below the border of the tibia. I immediately came upon a great saphenous vein, in similar fashion the branches were tied with 3-0 or 4-0 silk ties. We ultimately dissected out both anterior and posterior branches, so as to identify which branch would be a better conduit. The vein was then mobilized inferiorly, and I dissected into the empty popliteal space, with the gastrocnemius muscle retracted inferiorly. Identified the popliteal vein, and identified the popliteal artery. There was not a strong pulse in the popliteal artery, although it was soft. There was some dense scarring around the popliteal artery, and it was adhesed quite well to the popliteal vein. Ultimately, I was able to get circumferential control of the popliteal artery and it was dissected out proximally and distally, a vessel loop control was obtained. At this point, I performed the angiogram portion of the procedure. The patient had previously identified left external iliac artery stenosis. I punctured the common femoral artery with a micro-needle, advanced a micro-Glidewire, confirmed my position in the external iliac artery with fluoroscopy. I then exchanged out my micro-needle for 4-Romansh micro-sheath catheter using Seldinger technique. I then performed right angled oblique views of the right external iliac artery. The right iliac artery bifurcation was noted. There was no significant disease of the right external iliac artery at its proximal portion; however, at its distal portion, there was roughly 40% stenosis. I placed a 5 x 29 mm VBX stent. However, subsequent angiograms demonstrated there was now a proximal stenosis, which was either not identified before or a result of the stent placement. As a result, I elected to extend my stent, and I placed a 6 x 59 mm VBX stent from the iliac bifurcation, into the previously placed stent. Subsequent angiogram demonstrated resolution of the stenosis. The patient did not have a strong femoral pulse, I did place an A-line transducer to his femoral sheath, and the blood pressure was anywhere from 30 to 40 mmHg pressure lower than the radial A-line. I attempted to identify if there was any other significant inflow disease. I advanced a catheter into the aorta. I then performed a hand injection, which did not demonstrate any significant aortic disease. There was also some mild common iliac artery disease, but no more than 10 or 20%. Both iliac arteries filled evenly, and it did appear to be small. At this point, I continued with the bypass portion of the procedure. Unit #: [id number] #: [id number] Patient: KATIA SIFUENTES Using a long [place] tunneler, I made a tunnel anatomically from the popliteal artery up underneath the sartorius out the femoral sheath. The patient was then heparinized with 6000 units of heparin. Periodic ACTs were checked to ensure adequate levels throughout the case. The remainder of the vein was harvested, after we marked the anterior aspect of the vein so as to maintain our proper orientation. The proximal great saphenous vein was ligated at the saphenofemoral junction. The stump was oversewn with 4-0 Prolene and a Deepa suture. We then ligated the distal anterior branch as well as the distal posterior branch of the saphenous vein. I instilled it with heparinized saline, and both appeared to fill well, although the anterior branch had less needle assaults and injuries. Because the anterior branch seemed to have less injury, that was the one that we selected for the continuation of the bypass. We ligated the posterior branch. I then clamped the common femoral artery, SFA, and profunda artery. The sheath was pulled, and arteriotomy was extended from the puncture site. I placed 6-0 Prolene stay sutures for better visualization of the lumen. I then beveled the vein, so as to create a generous pacheco. It was sewn into place with 6-0 Prolene in a running fashion. Upon release of the common femoral artery, there was no significant bleeding from the proximal anastomosis. There was good pulsatile flow through the vein. I then advanced a LeMaitre valvulotome, and made several passes to create a valvulectomy within the great saphenous vein. I then clipped the distal aspect of the vein, it was sutured into the tunneler and was pulled through the tunnel, while maintaining proper orientation. We had adequate vein for the bypass procedure. We extended the leg to ensure that we had adequate length. I then obtained vessel loop control of the popliteal artery. The vein was clamped proximally. I then beveled the saphenous vein, for a generous pacheco. Arteriotomy was created with a #11 blade in the popliteal artery, extended with Grimaldo scissors. Two 6-0 Prolene stay sutures were placed in the popliteal artery. The vein was then sewn into place with 6-0 Prolene in a running fashion. Prior to completion of the anastomosis, we flushed the popliteal artery, flushed the inflow from the graft, and back-bled the below-knee popliteal artery segment. I then completed the anastomosis, there was no significant bleeding. Additional hemostasis was obtained with FloSeal and manual pressure. We then used a Doppler, which confirmed that the patient had a nice triphasic signal distal to the graft, which disappeared with compression of the graft. In addition, the patient had a multiphasic posterior tibial signal, with disappearance of the signal with compression of the graft. The patient did not have audible dorsalis pedis signal. This finding was consistent with his angiogram. We then punctured the bypass graft with a 21-gauge butterfly needle and shot a left lower extremity angiogram, which demonstrated brisk filling of the bypass graft, no kinking, no obvious stenosis was seen. There was good runoff to the below-knee popliteal artery and posterior tibial artery. The 21-gauge needle was removed, manual pressure was held for adequate hemostasis. We then closed the vein harvest wound bed with 2-0 Prolene in deep dermal fashion. It was then stapled closed. The below-knee popliteal artery segment was closed with 3-0 Vicryl reapproximating the fascia. 3-0 Vicryl was then used to bring the skin close together for reapproximation. During the dissection and the vein harvest, there were some superficial skin flaps that were created to dissect out the vein. It did appear to be thick enough, however, to be viable for closure. The wound was then closed with fanny. The groin was closed in multiple layers of 2-0 Vicryl and 3-0 Vicryl in a running fashion. The skin edges were closed with fanny. A Prevena dressing was applied to the left groin. Island dressings were placed at the wound Unit #: [id number] #: [id number] Patient: KATIA SIFUENTES harvest site. A nylon dressing was also placed in the below-knee popliteal artery incision. The leg was then covered with Kerlix, Webril, and a Coban wrap. At the end of the case, all counts were correct. I was present for entire duration of the procedure. ESTIMATED BLOOD LOSS 100 mL. FINDINGS 1. Patent aorta with diminutive iliac arteries, bilaterally. No significant left common iliac artery stenosis is identified. 2. Left external iliac artery stenosis is roughly 40% just proximal to the femoral head. 3. Patent bypass, with no evidence of proximal or distal anastomotic stenosis, and posterior tibial artery runoff to the foot. SPECIMEN None. IV FLUIDS 1600. CONTRAST USED 110 mL. Dictated by.Sondra Laurent/abbey TD: 03/13/2017 07:56 JOB #: [id number] OPERATIVE REPORT Page 1 of 1 X X PROCEDURE OPERATIVE NOTE
[~2017-03-02 23:57] MED LIST changes: -ALTOPREV40 MG PO; -ASPIRIN81 M2 PO; -ATORVASTATIN CA10 MG PO; -BACLOFEN10 MG PO; -BUSPIRONE HCL10 MG PO; -CELEXA20 MG PO; -CLEOCIN HCL300 M1 PO; -CLOPIDOGREL75 MG PO; -COREG3.125 MG PO; -COREG6.25 MG PO; -CYMBALTA20 MG PO; -DELTASONE20 MG PO; -DOCUSATE SODIU100 MG PO; -ENTRESTO 24 MG1 EACH PO; -FLOMAX0.4 M1 PO; -GABAPENTIN300 MG PO; -GLUCOPHAGE500 MG PO; -HYDROCHLOROTHIA25 MG PO; -KEFLEX500 MG PO; -LINZESS145 MCG PO; -NITROGLYCERIN0.4 MG SL; -PANTOPRAZOLE SO40 MG PO; -PERCOCET10 PO; -PRAVASTATIN SOD40 MG PO; -ZESTRIL5 MG PO; -[UNRECOGNIZED DRUG - OTHER] PO
[2017-03-03 00:22] LABS: BASOPHIL# 0.1 X10e3 (0-0.3); EOSINOPHIL# 0.3 X10e3 (0-0.7); EOSINOPHIL% 2.3 % (0.0-7.0); HEMATOCRIT 44.2 % (38.0-50.0); HEMOGLOBIN 14.8 gm/dL (13.0-16.0); LYMPHOCYTE# 4.1 X10e3 (1.0-3.5); LYMPHOCYTE% 29.1 % (17.0-45.0); MEAN CORPUSCULAR HEMOGLOBIN 29.7 PG (28-34); MEAN CORPUSCULAR HGB CONC 33.4 g/dL (30-36); MONOCYTE% 7.2 % (3.0-12.0); NEUTROPHIL# 8.5 X10e3 (1.5-7.1); NEUTROPHIL% 60.4 % (40-75); PLATELET COUNT 321 X10e3 (140-420); RED BLOOD COUNT 4.97 X10e (3.90-5.60); RED CELL DISTRIBUTION WIDTH 15.4 % (11.0-15.5)
[2017-03-03 00:25] LABS: DIFF IND NO
[2017-03-03 00:43] LABS: INR 0.9; PARTIAL THROMBOPLASTIN TIME 25.9 SECONDS (23.5-31.3); PROTHROMBIN TIME (PATIENT) 9.9 SECONDS (9.6-11.5)
[2017-03-03 00:45] LABS: ALBUMIN SERUM 3.7 g/dL (3.5-5.0); ALKALINE PHOSPHATASE 55 U/L (32-92); ALT (SGPT) 21 U/L (10-40); AST (SGOT) 25 U/L (10-42); BILIRUBIN,TOTAL 0.5 mg/dL (0.2-2.0); BLOOD UREA NITROGEN 44 mg/dL (9-23); CALCIUM SERUM 9.2 mg/dL (8.4-10.2); CARBON DIOXIDE 29 mmol/L (22-31); CHLORIDE 97 mmol/L (100-111); CREATININE SERUM 2.5 mg/dL (0.6-1.4); GLOM FILT RATE Estimated 27.1 mL/min (>60); GLUCOSE FASTING 90 mg/dL (70-110); POTASSIUM 3.5 mmol/L (3.5-5.1); PROTEIN TOTAL SERUM 7.2 g/dL (6.0-8.3); SODIUM 137 mmol/L (135-145)
[2017-03-03 00:52] LABS: BILIRUBIN, DIRECT <0.1 mg/dL (0.0-0.2); BILIRUBIN,INDIRECT 0.4 mg/dL (0.0-0.9)
[2017-03-03 06:57] LABS: URINE SOURCE CLEAN CATCH
[2017-03-03 07:14] LABS: URINE APPEARANCE CLEAR; URINE BILIRUBIN NEG (NEG); URINE BLOOD TRACE (NEG); URINE COLOR YELLOW; URINE GLUCOSE NEG (NEG); URINE KETONE NEG (NEG); URINE LEUKOCYTE ESTERASE NEG (NEG); URINE NITRATE NEG (NEG); URINE PH 5.5 (5-8); URINE PROTEIN NEG (NEG); URINE SPECIFIC GRAVITY 1.006 (1.003-1.035); URINE UROBILINOGEN 0.2 MG/DL (NEG)
[2017-03-03 07:16] LABS: HEMATOCRIT 40.1 % (38.0-50.0)
[2017-03-03 07:18] LABS: URBCS1 AUWI 0-2 /[HPF] (0-2); URINE BACTERIA AUWI NEG (NEGATIVE); URINE SQUAMOUS EPITHELIAL CELL NONE SEEN /[HPF]; UWBCS1 AUWI 0-2 (0-5)
[2017-03-03 07:40] LABS: BUN/CREATININE RATIO 19.5; CALCIUM SERUM 8.9 mg/dL (8.4-10.2); GLOM FILT RATE Estimated 35.5 mL/min (>60); POTASSIUM 4.3 mmol/L (3.5-5.1)
[2017-03-03] MEDS ORDERED: BUSPIRONE HCL10 MG PO (09:40)
[2017-03-03] MEDS ORDERED: ASPIRIN81 M2 PO (11:13)
[2017-03-03] MEDS ORDERED: BACLOFEN10 MG PO (11:13)
[2017-03-03] MEDS ORDERED: CELEXA20 MG PO (11:14)
[2017-03-03] MEDS ORDERED: CLEOCIN HCL300 M1 PO (11:14)
[2017-03-03] MEDS ORDERED: COREG6.25 MG PO (11:14)
[2017-03-03] MEDS ORDERED: KEFLEX500 MG PO (11:14)
[2017-03-03] MEDS ORDERED: CYMBALTA20 MG PO (11:15)
[2017-03-03] MEDS ORDERED: GABAPENTIN300 MG PO (11:15)
[2017-03-03] MEDS ORDERED: HYDROCHLOROTHIA25 MG PO (11:16)
[2017-03-03] MEDS ORDERED: [UNRECOGNIZED DRUG - OTHER] PO (11:16)
[2017-03-03] MEDS ORDERED: ZESTRIL5 MG PO (11:16)
[2017-03-03] MEDS ORDERED: GLUCOPHAGE500 MG PO (11:17)
[2017-03-03] MEDS ORDERED: ALTOPREV40 MG PO (11:17)
[2017-03-03] MEDS ORDERED: PANTOPRAZOLE SO40 MG PO (11:17)
[2017-03-03] MEDS ORDERED: PRAVASTATIN SOD40 MG PO (11:18)
[2017-03-03] MEDS ORDERED: DELTASONE20 MG PO (11:19)
[2017-03-03 13:54] LABS: HEMATOCRIT 39.3 % (38.0-50.0); HEMOGLOBIN 12.9 gm/dL (13.0-16.0)
[2017-03-04 06:32] LABS: HEMATOCRIT 39.3 % (38.0-50.0); HEMOGLOBIN 12.8 gm/dL (13.0-16.0); MEAN CELL VOLUME 88.9 FL (83-96); MEAN CORPUSCULAR HGB CONC 32.6 g/dL (30-36); RED BLOOD COUNT 4.42 X10e (3.90-5.60); RED CELL DISTRIBUTION WIDTH 15.4 % (11.0-15.5); WHITE BLOOD COUNT 9.6 X10e3 (4.0-10.5)
[2017-03-04 07:21] LABS: BUN/CREATININE RATIO 15.55; CALCIUM SERUM 8.4 mg/dL (8.4-10.2); CREATININE SERUM 0.9 mg/dL (0.6-1.4); GLOM FILT RATE Estimated 93.2 mL/min (>60); MAGNESIUM 1.4 mg/dL (1.6-3.0); POTASSIUM 3.9 mmol/L (3.5-5.1)
[2017-03-04 14:09] LABS: HEMATOCRIT 39.3 % (38.0-50.0); HEMOGLOBIN 12.7 gm/dL (13.0-16.0)
[2017-03-04 22:46] LABS: HEMATOCRIT 38.7 % (38.0-50.0); HEMOGLOBIN 12.8 gm/dL (13.0-16.0)
[2017-03-05 07:00] LABS: HEMATOCRIT 38.7 % (38.0-50.0); HEMOGLOBIN 13.2 gm/dL (13.0-16.0); MEAN CELL VOLUME 89.1 FL (83-96); MEAN CORPUSCULAR HEMOGLOBIN 30.3 PG (28-34); RED BLOOD COUNT 4.34 X10e (3.90-5.60); RED CELL DISTRIBUTION WIDTH 15.6 % (11.0-15.5); WHITE BLOOD COUNT 8.3 X10e3 (4.0-10.5)
[2017-03-05 08:05] LABS: BILIRUBIN,TOTAL 0.4 mg/dL (0.2-2.0); CALCIUM SERUM 8.2 mg/dL (8.4-10.2); CREATININE SERUM 0.9 mg/dL (0.6-1.4); GLOM FILT RATE Estimated 93.2 mL/min (>60); MAGNESIUM 1.5 mg/dL (1.6-3.0); POTASSIUM 3.7 mmol/L (3.5-5.1); PROTEIN TOTAL SERUM 6.1 g/dL (6.0-8.3)
[2017-03-06 05:33] LABS: HEMATOCRIT 39.6 % (38.0-50.0); HEMOGLOBIN 12.8 gm/dL (13.0-16.0); MEAN CELL VOLUME 89.8 FL (83-96); MEAN CORPUSCULAR HGB CONC 32.3 g/dL (30-36); MEAN PLATELET VOLUME 7.6 FL (6.5-11.5); RED BLOOD COUNT 4.41 X10e (3.90-5.60); RED CELL DISTRIBUTION WIDTH 15.6 % (11.0-15.5)
[2017-03-06 06:23] LABS: BUN/CREATININE RATIO 14.44; CALCIUM SERUM 8.6 mg/dL (8.4-10.2); CREATININE SERUM 0.9 mg/dL (0.6-1.4); GLOM FILT RATE Estimated 93.2 mL/min (>60); MAGNESIUM 1.8 mg/dL (1.6-3.0); POTASSIUM 4.1 mmol/L (3.5-5.1)
[2017-03-07 06:06] LABS: HEMATOCRIT 40.6 % (38.0-50.0); HEMOGLOBIN 13.1 gm/dL (13.0-16.0); MEAN CELL VOLUME 89.9 FL (83-96); MEAN CORPUSCULAR HEMOGLOBIN 29.1 PG (28-34); MEAN CORPUSCULAR HGB CONC 32.4 g/dL (30-36); MEAN PLATELET VOLUME 7.7 FL (6.5-11.5); RED BLOOD COUNT 4.51 X10e (3.90-5.60); RED CELL DISTRIBUTION WIDTH 15.4 % (11.0-15.5); WHITE BLOOD COUNT 9.7 X10e3 (4.0-10.5)
[2017-03-07 06:22] LABS: PROTHROMBIN TIME (PATIENT) 10.5 SECONDS (9.6-11.5)
[2017-03-07 07:14] LABS: BUN/CREATININE RATIO 17.77; CALCIUM SERUM 8.8 mg/dL (8.4-10.2); CREATININE SERUM 0.9 mg/dL (0.6-1.4); GLOM FILT RATE Estimated 93.2 mL/min (>60); MAGNESIUM 1.4 mg/dL (1.6-3.0); POTASSIUM 4.3 mmol/L (3.5-5.1)
[2017-03-08 05:56] LABS: HEMOGLOBIN 12.3 gm/dL (13.0-16.0); MEAN CELL VOLUME 89.2 FL (83-96); MEAN CORPUSCULAR HGB CONC 32.5 g/dL (30-36); MEAN PLATELET VOLUME 7.5 FL (6.5-11.5); RED BLOOD COUNT 4.26 X10e (3.90-5.60); RED CELL DISTRIBUTION WIDTH 15.6 % (11.0-15.5); WHITE BLOOD COUNT 10.7 X10e3 (4.0-10.5)
[2017-03-08 06:56] LABS: CALCIUM SERUM 8.5 mg/dL (8.4-10.2); CREATININE SERUM 0.8 mg/dL (0.6-1.4); GLOM FILT RATE Estimated 97.8 mL/min (>60); MAGNESIUM 1.7 mg/dL (1.6-3.0); POTASSIUM 4.3 mmol/L (3.5-5.1)
[2017-03-10 06:02] LABS: HEMATOCRIT 41.4 % (38.0-50.0); HEMOGLOBIN 13.5 gm/dL (13.0-16.0); MEAN CELL VOLUME 88.7 FL (83-96); MEAN CORPUSCULAR HGB CONC 32.7 g/dL (30-36); MEAN PLATELET VOLUME 7.3 FL (6.5-11.5); RED BLOOD COUNT 4.67 X10e (3.90-5.60); WHITE BLOOD COUNT 11.5 X10e3 (4.0-10.5)
[2017-03-10 06:42] LABS: PARTIAL THROMBOPLASTIN TIME 27.5 SECONDS (23.5-31.3); PROTHROMBIN TIME (PATIENT) 10.6 SECONDS (9.6-11.5)
[2017-03-10 06:58] LABS: BUN/CREATININE RATIO 16.92; CALCIUM SERUM 9.4 mg/dL (8.4-10.2); CREATININE SERUM 1.3 mg/dL (0.6-1.4); GLOM FILT RATE Estimated 59.7 mL/min (>60)
[2017-03-12 06:34] LABS: HEMATOCRIT 40.6 % (38.0-50.0); HEMOGLOBIN 12.9 gm/dL (13.0-16.0); MEAN CELL VOLUME 90.2 FL (83-96); MEAN CORPUSCULAR HEMOGLOBIN 28.7 PG (28-34); MEAN CORPUSCULAR HGB CONC 31.8 g/dL (30-36); MEAN PLATELET VOLUME 7.6 FL (6.5-11.5); RED BLOOD COUNT 4.5 X10e (3.90-5.60); RED CELL DISTRIBUTION WIDTH 15.7 % (11.0-15.5); WHITE BLOOD COUNT 9.7 X10e3 (4.0-10.5)
[2017-03-12 06:43] LABS: PROTHROMBIN TIME (PATIENT) 10.4 SECONDS (9.6-11.5)
[2017-03-12 07:09] LABS: BUN/CREATININE RATIO 18.18; CALCIUM SERUM 8.9 mg/dL (8.4-10.2); CREATININE SERUM 1.1 mg/dL (0.6-1.4); GLOM FILT RATE Estimated 73.1 mL/min (>60); POTASSIUM 4.3 mmol/L (3.5-5.1)
[2017-03-12 20:30] LABS: HEMOGLOBIN 12.8 gm/dL (13.0-16.0); MEAN CELL VOLUME 89.4 FL (83-96); MEAN CORPUSCULAR HEMOGLOBIN 29.3 PG (28-34); MEAN CORPUSCULAR HGB CONC 32.8 g/dL (30-36); MEAN PLATELET VOLUME 6.9 FL (6.5-11.5); RED BLOOD COUNT 4.36 X10e (3.90-5.60); RED CELL DISTRIBUTION WIDTH 16.1 % (11.0-15.5); WHITE BLOOD COUNT 14.4 X10e3 (4.0-10.5)
[2017-03-12 20:45] LABS: PARTIAL THROMBOPLASTIN TIME 26.1 SECONDS (23.5-31.3); PROTHROMBIN TIME (PATIENT) 10.3 SECONDS (9.6-11.5)
[2017-03-13 02:16] LABS: URINE BILIRUBIN NEG (NEG); URINE BLOOD 3+ (NEG); URINE COLOR YELLOW; URINE GLUCOSE NEG (NEG); URINE KETONE NEG (NEG); URINE LEUKOCYTE ESTERASE NEG (NEG); URINE NITRATE NEG (NEG); URINE PROTEIN NEG (NEG); URINE SPECIFIC GRAVITY 1.025 (1.003-1.035); URINE UROBILINOGEN 0.2 MG/DL (NEG)
[2017-03-13 02:17] LABS: URBCS1 AUWI 50-100 /[HPF] (0-2); URINE BACTERIA AUWI NEG (NEGATIVE); URINE SQUAMOUS EPITHELIAL CELL NONE SEEN /[HPF]; UWBCS1 AUWI 0-2 (0-5)
[2017-03-13 02:19] LABS: CULTURE INDICATED? NO; URINE APPEARANCE CLEAR
[2017-03-13 03:52] LABS: HEMATOCRIT 37.4 % (38.0-50.0); MEAN CELL VOLUME 90.8 FL (83-96); MEAN CORPUSCULAR HGB CONC 31.9 g/dL (30-36); MEAN PLATELET VOLUME 7.6 FL (6.5-11.5); RED BLOOD COUNT 4.13 X10e (3.90-5.60); WHITE BLOOD COUNT 13.1 X10e3 (4.0-10.5)
[2017-03-13 04:15] LABS: BUN/CREATININE RATIO 12.72; CALCIUM SERUM 7.8 mg/dL (8.4-10.2); CREATININE SERUM 1.1 mg/dL (0.6-1.4); GLOM FILT RATE Estimated 73.1 mL/min (>60); MAGNESIUM 1.3 mg/dL (1.6-3.0)
[2017-03-14 04:45] LABS: HEMOGLOBIN 10.4 gm/dL (13.0-16.0); MEAN CELL VOLUME 90.3 FL (83-96); MEAN CORPUSCULAR HEMOGLOBIN 29.3 PG (28-34); MEAN CORPUSCULAR HGB CONC 32.5 g/dL (30-36); MEAN PLATELET VOLUME 7.4 FL (6.5-11.5); RED BLOOD COUNT 3.54 X10e (3.90-5.60); RED CELL DISTRIBUTION WIDTH 15.5 % (11.0-15.5); WHITE BLOOD COUNT 13.5 X10e3 (4.0-10.5)
[2017-03-14 05:08] LABS: BUN/CREATININE RATIO 16.66; CALCIUM SERUM 7.8 mg/dL (8.4-10.2); CREATININE SERUM 0.9 mg/dL (0.6-1.4); GLOM FILT RATE Estimated 93.2 mL/min (>60); MAGNESIUM 1.5 mg/dL (1.6-3.0); POTASSIUM 4.3 mmol/L (3.5-5.1)
[2017-03-15 06:07] LABS: HEMATOCRIT 30.7 % (38.0-50.0); MEAN CELL VOLUME 89.4 FL (83-96); MEAN CORPUSCULAR HEMOGLOBIN 29.1 PG (28-34); MEAN CORPUSCULAR HGB CONC 32.6 g/dL (30-36); MEAN PLATELET VOLUME 7.5 FL (6.5-11.5); RED BLOOD COUNT 3.43 X10e (3.90-5.60); RED CELL DISTRIBUTION WIDTH 15.7 % (11.0-15.5)
[2017-03-15 06:35] LABS: PARTIAL THROMBOPLASTIN TIME 52.5 SECONDS (23.5-31.3); PROTHROMBIN TIME (PATIENT) 10.5 SECONDS (9.6-11.5)
[2017-03-15 06:45] LABS: BUN/CREATININE RATIO 12.5; CALCIUM SERUM 7.4 mg/dL (8.4-10.2); CREATININE SERUM 0.8 mg/dL (0.6-1.4); GLOM FILT RATE Estimated 97.8 mL/min (>60); MAGNESIUM 1.9 mg/dL (1.6-3.0); POTASSIUM 3.8 mmol/L (3.5-5.1)
[2017-03-16 06:48] LABS: HEMOGLOBIN 10.3 gm/dL (13.0-16.0); MEAN CELL VOLUME 89.2 FL (83-96); MEAN CORPUSCULAR HEMOGLOBIN 29.5 PG (28-34); MEAN CORPUSCULAR HGB CONC 33.1 g/dL (30-36); MEAN PLATELET VOLUME 7.5 FL (6.5-11.5); RED BLOOD COUNT 3.48 X10e (3.90-5.60); RED CELL DISTRIBUTION WIDTH 15.5 % (11.0-15.5); WHITE BLOOD COUNT 9.6 X10e3 (4.0-10.5)
[2017-03-16 07:32] LABS: ALBUMIN SERUM 2.1 g/dL (3.5-5.0); BILIRUBIN,TOTAL 0.9 mg/dL (0.2-2.0); BUN/CREATININE RATIO 11.66; CALCIUM SERUM 7.3 mg/dL (8.4-10.2); CREATININE SERUM 0.6 mg/dL (0.6-1.4); GLOM FILT RATE Estimated 110.1 mL/min (>60); MAGNESIUM 1.6 mg/dL (1.6-3.0); POTASSIUM 3.3 mmol/L (3.5-5.1); PROTEIN TOTAL SERUM 4.9 g/dL (6.0-8.3)
[2017-03-16 16:27] LABS: %MB 0.7 % (0.0-4.0); MB 8.2 ng/ml
[2017-03-16 22:05] LABS: %MB 0.6 % (0.0-4.0); MB 7.1 ng/ml
[2017-03-17 06:15] LABS: HEMATOCRIT 36.6 % (38.0-50.0); HEMOGLOBIN 11.8 gm/dL (13.0-16.0); MEAN CELL VOLUME 89.6 FL (83-96); MEAN CORPUSCULAR HEMOGLOBIN 28.8 PG (28-34); MEAN CORPUSCULAR HGB CONC 32.2 g/dL (30-36); MEAN PLATELET VOLUME 7.5 FL (6.5-11.5); RED BLOOD COUNT 4.09 X10e (3.90-5.60); RED CELL DISTRIBUTION WIDTH 15.5 % (11.0-15.5); WHITE BLOOD COUNT 10.6 X10e3 (4.0-10.5)
[2017-03-17 07:01] LABS: BUN/CREATININE RATIO 7.14; CALCIUM SERUM 7.8 mg/dL (8.4-10.2); CREATININE SERUM 0.7 mg/dL (0.6-1.4); GLOM FILT RATE Estimated 103.3 mL/min (>60); MAGNESIUM 1.7 mg/dL (1.6-3.0); POTASSIUM 3.2 mmol/L (3.5-5.1)
[2017-03-18 06:17] LABS: HEMATOCRIT 35.2 % (38.0-50.0); HEMOGLOBIN 11.3 gm/dL (13.0-16.0); MEAN CELL VOLUME 90.3 FL (83-96); MEAN CORPUSCULAR HGB CONC 32.2 g/dL (30-36); MEAN PLATELET VOLUME 7.3 FL (6.5-11.5); RED BLOOD COUNT 3.9 X10e (3.90-5.60); RED CELL DISTRIBUTION WIDTH 15.5 % (11.0-15.5)
[2017-03-18 06:59] LABS: BUN/CREATININE RATIO 7.14; CREATININE SERUM 0.7 mg/dL (0.6-1.4); GLOM FILT RATE Estimated 103.3 mL/min (>60); POTASSIUM 4.3 mmol/L (3.5-5.1)
[2017-03-18 14:01] LABS: URINE APPEARANCE CLEAR; URINE BILIRUBIN NEG (NEG); URINE BLOOD TRACE (NEG); URINE COLOR YELLOW; URINE GLUCOSE NEG (NEG); URINE KETONE 3+ (NEG); URINE LEUKOCYTE ESTERASE NEG (NEG); URINE NITRATE NEG (NEG); URINE PROTEIN NEG (NEG); URINE SPECIFIC GRAVITY 1.018 (1.003-1.035); URINE UROBILINOGEN 0.2 MG/DL (NEG)
[2017-03-18 14:04] LABS: CULTURE INDICATED? YES; U HYALINE CASTS AUWI 0-2 /[LPF]; URBCS1 AUWI 25-50 /[HPF] (0-2); URINE BACTERIA AUWI NEG (NEGATIVE); URINE SQUAMOUS EPITHELIAL CELL NONE SEEN /[HPF]
[2017-03-19 06:46] LABS: HEMATOCRIT 34.7 % (38.0-50.0); HEMOGLOBIN 11.2 gm/dL (13.0-16.0); MEAN CELL VOLUME 89.8 FL (83-96); MEAN CORPUSCULAR HEMOGLOBIN 28.9 PG (28-34); MEAN CORPUSCULAR HGB CONC 32.2 g/dL (30-36); MEAN PLATELET VOLUME 7.3 FL (6.5-11.5); RED BLOOD COUNT 3.86 X10e (3.90-5.60)
[2017-03-19 07:09] LABS: CALCIUM SERUM 8.1 mg/dL (8.4-10.2); CREATININE SERUM 1.2 mg/dL (0.6-1.4); GLOM FILT RATE Estimated 65.8 mL/min (>60); POTASSIUM 4.1 mmol/L (3.5-5.1)
[2017-03-20] MEDS ORDERED: FLOMAX0.4 M1 PO (14:56)
[2017-03-20] MEDS ORDERED: ENTRESTO 24 MG1 EACH PO (14:58)
[2017-03-20] MEDS ORDERED: COREG3.125 MG PO (15:00)
[2017-03-20] MEDS ORDERED: DOCUSATE SODIU100 MG PO (15:01)
[2017-03-20] MEDS ORDERED: LINZESS145 MCG PO (15:02)
[2017-03-20] MEDS ORDERED: ATORVASTATIN CA10 MG PO (15:02)
[2017-03-20] MEDS ORDERED: PERCOCET10 PO (15:04)
[2017-03-20] MEDS ORDERED: CLOPIDOGREL75 MG PO (15:05)
[2017-03-20] MEDS ORDERED: NITROGLYCERIN0.4 MG SL (15:06)
== END 2017-03-20 16:14 | disposition home or self-care (01) | DRG 853 ==
LOC: CED 23:57 → CEDOF 03-03 03:10 → C2A 03-03 08:35 → C5C 03-10 17:01
PROVIDERS: Emergency Medicine; Family Medicine; Internal Medicine; Internal Medicine Cardiovascular Disease; Nurse Practitioner Family; Physician Assistant Medical; Surgery; Surgery Vascular Surgery
PROC: 0DBN8ZX Excision of Sigmoid Colon, Via Natural or Artificial Opening Endoscopic, Diagnostic (ICD-10-PCS; 2017-03-04)
PROC: 0DBP8ZX Excision of Rectum, Via Natural or Artificial Opening Endoscopic, Diagnostic (ICD-10-PCS; 2017-03-04)
PROC: B410YZZ Fluoroscopy of Abdominal Aorta using Other Contrast (ICD-10-PCS; 2017-03-07)
PROC: B41GYZZ Fluoroscopy of Left Lower Extremity Arteries using Other Contrast (ICD-10-PCS; 2017-03-07)
PROC: B41FYZZ Fluoroscopy of Right Lower Extremity Arteries using Other Contrast (ICD-10-PCS; 2017-03-07)
PROC: B24BYZZ Ultrasonography of Heart with Aorta using Other Contrast (ICD-10-PCS; 2017-03-07)
PROC: 4A023N7 Measurement of Cardiac Sampling and Pressure, Left Heart, Percutaneous Approach (ICD-10-PCS; 2017-03-10)
PROC: B211YZZ Fluoroscopy of Multiple Coronary Arteries using Other Contrast (ICD-10-PCS; 2017-03-10)
PROC: B215YZZ Fluoroscopy of Left Heart using Other Contrast (ICD-10-PCS; 2017-03-10)
PROC: 047J04Z Dilation of Left External Iliac Artery with Drug-eluting Intraluminal Device, Open Approach (ICD-10-PCS; 2017-03-12)
PROC: B41GYZZ Fluoroscopy of Left Lower Extremity Arteries using Other Contrast (ICD-10-PCS; 2017-03-12)
PROC: 041L0ZL Bypass Left Femoral Artery to Popliteal Artery, Open Approach (ICD-10-PCS; principal; 2017-03-12 08:30)
PROC: 0DTJ4ZZ Resection of Appendix, Percutaneous Endoscopic Approach (ICD-10-PCS; 2017-03-17)
DX: A41.9 Sepsis, unspecified organism (principal); I50.23 Acute on chronic systolic (congestive) heart failure; K55.9 Vascular disorder of intestine, unspecified; N17.9 Acute kidney failure, unspecified; I70.262 Atherosclerosis of native arteries of extremities with gangrene, left leg; I69.954 Hemiplegia and hemiparesis following unspecified cerebrovascular disease affecting left non-dominant side; K35.80 Unspecified acute appendicitis; I11.0 Hypertensive heart disease with heart failure; E11.621 Type 2 diabetes mellitus with foot ulcer; Z89.611 Acquired absence of right leg above knee; Z91.013 Allergy to seafood; Z79.82 Long term (current) use of aspirin; I77.1 Stricture of artery; E78.5 Hyperlipidemia, unspecified; Z79.84 Long term (current) use of oral hypoglycemic drugs; I65.23 Occlusion and stenosis of bilateral carotid arteries; Z99.3 Dependence on wheelchair; F17.210 Nicotine dependence, cigarettes, uncomplicated; I49.3 Ventricular premature depolarization; L97.529 Non-pressure chronic ulcer of other part of left foot with unspecified severity; N47.2 Paraphimosis; I70.245 Atherosclerosis of native arteries of left leg with ulceration of other part of foot; K62.1 Rectal polyp; K57.90 Diverticulosis of intestine, part unspecified, without perforation or abscess without bleeding; F41.9 Anxiety disorder, unspecified; F32.9 Major depressive disorder, single episode, unspecified; I25.119 Atherosclerotic heart disease of native coronary artery with unspecified angina pectoris; I25.5 Ischemic cardiomyopathy; E87.6 Hypokalemia; E11.21 Type 2 diabetes mellitus with diabetic nephropathy
CPT/HCPCS: 36415; 71020; 73630; 73720; 74000; 74022; 74176; 74177; 75625; 75710; 76001; 76770; 80048; 80053; 80076; 80202; 81003; 82550; 82553; 82565; 82947; 83036; 83605; 83735; 83880; 84484; 85014; 85018; 85025; 85027; 85610; 85652; 85730; 86140; 86850; 86900; 86901; 86923; 87040; 87086; 88304; 88305; 93005; 93306; 93922; 93926; 94760; 96361; 96374; 97162; 97163; 97167; 97530; 97535; 99285; A9577; C1725; C1760; C1769; C1874; C1887; C1894; C9113; G0365; G8978-GP; G8979-GP; G8980-GP; G8987-GO; G8988-GO; G8989-GO; J0690; J1170; J1335; J1644; J1650; J1956; J2250; J2270; J2405; J2710; J2720; J3010; J3370; J3475; Q9967

== ENCOUNTER 2017-03-29 13:31 | Emergency (ER) | payer OTHER ==
[~2017-03-29 13:31] MED LIST changes: +ALTOPREV40 MG PO; +ASPIRIN81 M2 PO; +ATORVASTATIN CA10 MG PO; +BACLOFEN10 MG PO; +BUSPIRONE HCL10 MG PO; +CELEXA20 MG PO; +CLEOCIN HCL300 M1 PO; +CLOPIDOGREL75 MG PO; +COREG3.125 MG PO; +COREG6.25 MG PO; +CYMBALTA20 MG PO; +DELTASONE20 MG PO; +DOCUSATE SODIU100 MG PO; +ENTRESTO 24 MG1 EACH PO; +FLOMAX0.4 M1 PO; +GABAPENTIN300 MG PO; +GLUCOPHAGE500 MG PO; +HYDROCHLOROTHIA25 MG PO; +KEFLEX500 MG PO; +LINZESS145 MCG PO; +NITROGLYCERIN0.4 MG SL; +PANTOPRAZOLE SO40 MG PO; +PERCOCET10 PO; +PRAVASTATIN SOD40 MG PO; +ZESTRIL5 MG PO; +[UNRECOGNIZED DRUG - OTHER] PO
[2017-03-29 15:49] LABS: BASOPHIL# 0.1 X10e3 (0-0.3); BASOPHIL% 0.7 % (0-2.5); EOSINOPHIL# 0.3 X10e3 (0-0.7); EOSINOPHIL% 2.6 % (0.0-7.0); HEMATOCRIT 42.5 % (38.0-50.0); HEMOGLOBIN 13.8 gm/dL (13.0-16.0); LYMPHOCYTE% 34.5 % (17.0-45.0); MEAN CELL VOLUME 90.5 FL (83-96); MEAN CORPUSCULAR HEMOGLOBIN 29.4 PG (28-34); MEAN CORPUSCULAR HGB CONC 32.4 g/dL (30-36); MONOCYTE# 0.8 X10e3 (0-1.0); MONOCYTE% 7.3 % (3.0-12.0); NEUTROPHIL# 6.3 X10e3 (1.5-7.1); NEUTROPHIL% 54.9 % (40-75); PLATELET COUNT 719 X10e3 (140-420); RED CELL DISTRIBUTION WIDTH 16.9 % (11.0-15.5); WHITE BLOOD COUNT 11.5 X10e3 (4.0-10.5)
[2017-03-29 15:51] LABS: DIFF IND NO
[2017-03-29 16:05] LABS: ALBUMIN SERUM 3.5 g/dL (3.5-5.0); BILIRUBIN, DIRECT 0.1 mg/dL (0.0-0.2); BILIRUBIN,INDIRECT 0.7 mg/dL (0.0-0.9); BILIRUBIN,TOTAL 0.8 mg/dL (0.2-2.0); CALCIUM SERUM 8.9 mg/dL (8.4-10.2); POTASSIUM 3.9 mmol/L (3.5-5.1); PROTEIN TOTAL SERUM 7.6 g/dL (6.0-8.3)
[2017-03-29 16:29] LABS: URINE SOURCE CLEAN CATCH
[2017-03-29 16:37] LABS: URINE APPEARANCE CLEAR; URINE BILIRUBIN NEG (NEG); URINE BLOOD NEG (NEG); URINE COLOR YELLOW; URINE GLUCOSE NEG (NEG); URINE KETONE NEG (NEG); URINE LEUKOCYTE ESTERASE TRACE (NEG); URINE NITRATE NEG (NEG); URINE PROTEIN NEG (NEG); URINE SPECIFIC GRAVITY 1.016 (1.003-1.035)
[2017-03-29 16:40] LABS: CULTURE INDICATED? NO; URINE BACTERIA AUWI NEG (NEGATIVE); URINE SQUAMOUS EPITHELIAL CELL OCC /[HPF]
== END 2017-03-29 22:50 | disposition home or self-care (01) ==
LOC: CED 13:31
PROVIDERS: Emergency Medicine
DX: R19.7 Diarrhea, unspecified (principal); E11.9 Type 2 diabetes mellitus without complications; I10 Essential (primary) hypertension; Z91.040 Latex allergy status; Z91.013 Allergy to seafood; Z79.82 Long term (current) use of aspirin; Z79.899 Other long term (current) drug therapy; Z87.891 Personal history of nicotine dependence
CPT/HCPCS: 36415; 80048; 80076; 81003; 83690; 85025; 87045; 87427; 87493; 87899; 99283